=== PATIENT | female | born 1940 | race Caucasian/White ===

== ENCOUNTER → 2016-10-12 | Outpatient (CLI) | payer OTHER ==
--- NOTE | 2016-10-12 11:21 | MA ---
Screening Digital Mammogram With iCAD Analysis Clinical Indications: Routine screening. A sister was diagnosed with breast cancer her 60s. Technique: Standard cephalocaudal and mediolateral oblique projections were obtained. This examinatio n was processed by the iCAD computer aided detection system. Comparison: October 2015, July 2014, July 2013, July 2012, July 2011. Breast density: Type B; Scattered fibroglandular densities. Findings: CAD was reviewed. No masses, suspicious calcifications or other signs of malignancy are id entified. There has been no significant change in the appearance of either breast. Impression: Negative mammogram. BI-RADS 1. Recommendation: Routine mammographic screening in one year as long as physical examination is negativ [facility]. Negative mammography should not preclude additional workup of a clinically suspicious finding. The patient's information is entered into a reminder system with a target due date for her next mammo gram.
== END ==
LOC: BMCIMAGING 08:51
DX: Z12.31 Encounter for screening mammogram for malignant neoplasm of breast (principal)
CPT/HCPCS: G0202

== ENCOUNTER → 2017-09-20 | Outpatient (CLI) | payer OTHER | LOC: BMCIMAGING 13:13 | PROVIDERS: ATTEND Physician Assistant Medical | DX: M85.48 Solitary bone cyst, other site (principal); M54.5 Low back pain ==

== ENCOUNTER → 2017-10-14 | Outpatient (CLI) | payer OTHER | LOC: BMCIMAGING 12:33 | PROVIDERS: ATTEND Internal Medicine | DX: Z12.31 Encounter for screening mammogram for malignant neoplasm of breast (principal); Z80.3 Family history of malignant neoplasm of breast ==

== ENCOUNTER → 2017-12-10 | Outpatient (CLI) | payer OTHER | LOC: FCPNEURO 20:00 | PROVIDERS: ATTEND Student in an Organized Health Care Education/Training Program | DX: G47.33 Obstructive sleep apnea (adult) (pediatric) (principal); G47.39 Other sleep apnea ==

== ENCOUNTER 2018-02-28 10:58 | Inpatient (IN) | payer OTHER ==
--- NOTE | 2018-02-28 14:17 | CPEKG ---
Heart Rate: 67 RR Interval: 896 P-R Interval: 196 QRSD Interval: 88 QT Interval: 420 QTC Interval: 444 P [place]: 79 QRS [place]: 55 T Wave [place]: 67 EKG Severity - BORDERLINE ECG - EKG Impression: SINUS RHYTHM EKG Impression: PROBABLE LEFT ATRIAL ABNORMALITY Electronically Signed By: Alistair Singletary 01-Mar-2018 10:42:19
--- NOTE | 2018-02-28 14:38 | PDCARPN ---
Cardiology Progress Note Chief Complaint: PAF Assessment/Plan: Assessment: 77-y/o F PMH PAF, bladder CA, IBS, here for Sotalol titration after presenting to [facility] in [place]. Other PMH includes OA for which she has been scheduled for THR on Saturday. Currently cancelled but we are trying to see if she can get rescheduled. #. PAF: has converted to SR will start Sotalol titration hold AC in anticipation for possible surgical intervention #. FEN: regular diet monitor electrolytes #. LOS: inpatient for high risk med titration Plan: - Start Sotalol once labwork complete 02/28/18 14:33 Subjective: No AF currently. Objective: Vital Signs (8 Hrs) Temp Pulse Resp BP Pulse Ox 02/28/18 13:18 98.0 F 77 15 99/69 L 94 Intake/Output (24 Hrs) 02/27/18 02/28/18 03/01/18 05:59 05:59 05:59 Intake Total 500 Balance 500 Intake: Oral (ml) 500 Other: Weight 54.3 kg EKG: NSR Telemetry: SR - Physical Exam Constitutional: healthy appearing, no apparent distress Eyes: PERRL Ears, Nose, Mouth, Throat: moist mucous membranes Cardiovascular: regular rate and rhythm, no murmurs Respiratory: clear to auscultate bilat, no crackles Gastrointestinal: normoactive bowel sounds Skin: no rashes, no abrasions Neurologic: AAOx3 Psychiatric: cooperative, interactive ICD10 Worksheet Patient Problems: Problems Problem Status Onset Afib Acute - ICD10 Problem Qualifiers (1) Afib
--- NOTE | 2018-02-28 15:20 | PDMN ---
Medical Necessity Medical necessity: est los>2mn for PAF; admit for Sotalol loading and titration with f/u EKG's, for high risk medication; comorbid IBS, OA ( possible THR 03/03), AC on hold for potential surgery; hx bladder CA; per order and H&P 02/28/18
[2018-02-28] MEDS ORDERED: ACETAMINOPHEN 325 MG TAB PO PRN (15:44)
[2018-02-28] MEDS ORDERED: BISMUTH SUBSALICYLATE 524 MG/30 ML UDL PO PRN (15:44)
[2018-02-28] MEDS ORDERED: POLYETHYLENE GLYCOL 3350 17 GM PKT PO PRN (15:44)
[2018-02-28] MEDS ORDERED: BUTENAFINE HCL TP PRN (15:44)
[2018-02-28] MEDS ORDERED: FLUTICASONE NASAL 120 SPRAYS/16 GM MDI NS PRN (15:44)
[2018-02-28] MEDS ORDERED: TEMAZEPAM 15 MG CAP PO PRN (16:05)
[2018-02-28 16:50] LABS: PLATELET COUNT 236 10^3/uL (150-400)
[2018-02-28 17:11] LABS: INR 1.18 (0.83-1.16); PROTIME(PATIENT) 15.2 SEC (12.0-15.0)
[2018-02-28] MEDS: APIXABAN 5 MG TAB PO SCH (20:54)
[2018-02-28] MEDS: SOTALOL HCL 80 MG TAB PO SCH (20:55)
[2018-02-28] MEDS: GABAPENTIN 100 MG CAP PO SCH (20:55)
[2018-02-28] MEDS: CARBOXYMETHYLCELLULOSE 1% 0.4 ML DROPERETTE EACHEYE SCH (20:55)
--- NOTE | 2018-02-28 23:20 | CPEKG ---
Heart Rate: 58 RR Interval: 1034 P-R Interval: 196 QRSD Interval: 96 QT Interval: 476 QTC Interval: 468 P [place]: 85 QRS [place]: 69 T Wave [place]: 71 EKG Severity - BORDERLINE ECG - EKG Impression: SINUS RHYTHM Electronically Signed By: Alistair Singletary 01-Mar-2018 10:42:15
[2018-03-01 04:40] LABS: INR 1.27 (0.83-1.16); PROTIME(PATIENT) 16.1 SEC (12.0-15.0)
[2018-03-01] MEDS: LEVOTHYROXINE 88 MCG TAB PO SCH (06:21)
[2018-03-01] MEDS: LIOTHYRONINE SODIUM 5 MCG TAB PO SCH (09:00)
[2018-03-01] MEDS ORDERED: METOPROLOL SUCCINATE XR 25 MG TAB PO SCH (09:00)
[2018-03-01] MEDS: SOTALOL HCL 80 MG TAB PO SCH ×2 (09:01→21:01)
[2018-03-01] MEDS: CARBOXYMETHYLCELLULOSE 1% 0.4 ML DROPERETTE EACHEYE SCH ×2 (09:02→21:02)
[2018-03-01] MEDS: VITAMIN B COMPLEX 1 EA CAP/TAB PO SCH (09:02)
[2018-03-01] MEDS: APIXABAN 5 MG TAB PO SCH ×2 (09:02→21:02)
[2018-03-01] MEDS: MINOXIDIL TP SCH (09:04)
--- NOTE | 2018-03-01 09:38 | PDCARPN ---
Cardiology Progress Note Chief Complaint: PAF/Sotalol titration Assessment/Plan: Assessment: 77-y/o F PMH PAF, bladder CA, IBS, here for Sotalol titration after presenting to [facility] in [place]. Other PMH includes OA for which she has been scheduled for THR on Saturday. Her surgery is cancelled but can be scheduled in near future. #. PAF: has spontaneously converted to SR prior to initiation of Sotalol will start Sotalol titration for rhythm maintenance resume AC #. FEN: regular diet monitor electrolytes #. LOS: inpatient for high risk med titration Plan: - Continue Sotalol with post dosing ECG protocol 03/01/18 09:35 Subjective: No complaints. Objective: Vital Signs (8 Hrs) Temp Pulse Resp BP Pulse Ox 03/01/18 09:01 69 124/73 H 03/01/18 07:39 97.9 F 60 15 116/69 97 03/01/18 04:25 98.0 F 62 17 122/69 H 97 Intake/Output (24 Hrs) 02/28/18 03/01/18 03/02/18 05:59 05:59 05:59 Intake Total 1450 Output Total 1400 Balance 50 Intake: Oral (ml) 1450 Output: Urine (ml) 1400 Urostomy 1400 Other: Weight 54.3 kg Number of Voids Toilet 2 Result Diagrams: 02/28/18 16:37 03/01/18 03:24 EKG: SR with QTc wnl Telemetry: SR - Physical Exam Constitutional: healthy appearing, no apparent distress Eyes: PERRL, anicteric sclera Ears, Nose, Mouth, Throat: moist mucous membranes Cardiovascular: regular rate and rhythm, no murmurs Respiratory: clear to auscultate bilat, no crackles Neurologic: AAOx3 Psychiatric: cooperative, interactive ICD10 Worksheet Patient Problems: Problems Problem Status Onset Afib Acute - ICD10 Problem Qualifiers (1) Afib
--- NOTE | 2018-03-01 11:06 | CPEKG ---
Heart Rate: 62 RR Interval: 968 P-R Interval: 196 QRSD Interval: 92 QT Interval: 452 QTC Interval: 459 P [place]: 84 QRS [place]: 63 T Wave [place]: 68 EKG Severity - BORDERLINE ECG - EKG Impression: SINUS RHYTHM EKG Impression: BORDERLINE T ABNORMALITIES, ANT-LAT LEADS Electronically Signed By: Alistair Singletary 01-Mar-2018 14:26:51
--- NOTE | 2018-03-01 14:53 | ASMTCMCOM ---
CM Note CM Note Notes: Pt admitted in [place]. DC need are unclear. CM to follow. Date Signed: 03/01/2018 02:52 PM Electronically Signed By:Shirley Brock LCSW
[2018-03-01] MEDS: GABAPENTIN 100 MG CAP PO SCH (21:02)
--- NOTE | 2018-03-01 23:03 | CPEKG ---
Heart Rate: 58 RR Interval: 1034 P-R Interval: 200 QRSD Interval: 104 QT Interval: 484 QTC Interval: 476 P [place]: 82 QRS [place]: 61 T Wave [place]: 65 EKG Severity - NORMAL ECG - EKG Impression: SINUS RHYTHM Electronically Signed By: Janki Cardoza 02-Mar-2018 07:09:11
[2018-03-02] MEDS: LEVOTHYROXINE 88 MCG TAB PO SCH (07:06)
[2018-03-02] MEDS: LIOTHYRONINE SODIUM 5 MCG TAB PO SCH (07:10)
[2018-03-02] MEDS: CARBOXYMETHYLCELLULOSE 1% 0.4 ML DROPERETTE EACHEYE SCH ×2 (08:21→21:11)
[2018-03-02] MEDS: APIXABAN 5 MG TAB PO SCH ×2 (08:21→20:54)
[2018-03-02] MEDS: VITAMIN B COMPLEX 1 EA CAP/TAB PO SCH (08:21)
[2018-03-02] MEDS: SOTALOL HCL 80 MG TAB PO SCH ×2 (10:31→20:56)
--- NOTE | 2018-03-02 11:24 | PDCARPN ---
Cardiology Progress Note Assessment/Plan: Assessment: 1. Paroxysmal Afib 2. Initiation of Sotalol therapy 3. QTc 472 ms on ECG this AM Plan: -Continue Sotaolol 120 mg bid -Continiue Eliquis 5 mg bid -Continue ECG 2 hours post Sotalol dose 03/02/18 11:21 Subjective: Yolanda was admitted Silvio evening for initation of Sotalol therapy in the setting of symptomatic PAF. She spontaneously converted to NSR. Tolerating Sotalol 120 mg bid. QTc on most recent ECG of 472 ms. She remains on Eliquis 5 mg bid Reviewed/Discussed With: multidisciplinary team Objective: Vital Signs (8 Hrs) Temp Pulse Resp BP Pulse Ox 03/02/18 11:18 65 12 135/76 H 95 03/02/18 07:39 36.6 C 55 L 12 112/69 98 03/02/18 04:08 36.7 C 61 15 110/56 L 96 Intake/Output (24 Hrs) 03/01/18 03/02/18 03/03/18 05:59 05:59 05:59 Intake Total 1450 520 Output Total 1400 550 Balance 50 -30 Intake: Oral (ml) 1450 520 Output: Urine (ml) 1400 550 Urostomy 1400 550 Other: Weight 54.3 kg Intake Quantity Yes Sufficient Number of Voids Toilet 2 Urostomy 1 Result Diagrams: 02/28/18 16:37 03/01/18 03:24 - Physical Exam Constitutional: WDWN Ears, Nose, Mouth, Throat: moist mucous membranes Cardiovascular: regular rate and rhythm, no murmurs, no rubs, no gallops Respiratory: clear to auscultate bilat Musculoskeletal: no muscular tenderness Neurologic: AAOx3, CN II-XII grossly intact Psychiatric: cooperative, interactive, following commands ICD10 Worksheet Patient Problems: Problems Problem Status Onset Afib Acute
--- NOTE | 2018-03-02 12:14 | CPEKG ---
Heart Rate: 56 RR Interval: 1071 P-R Interval: 192 QRSD Interval: 82 QT Interval: 464 QTC Interval: 448 P [place]: 82 QRS [place]: 47 T Wave [place]: 68 EKG Severity - BORDERLINE ECG - EKG Impression: SINUS RHYTHM EKG Impression: PROBABLE LEFT ATRIAL ABNORMALITY EKG Impression: BORDERLINE T ABNORMALITIES, ANT-LAT LEADS Electronically Signed By: Zion Dawn 03-Mar-2018 11:00:15
--- NOTE | 2018-03-02 16:27 | PDCARPN ---
Cardiology Progress Note Assessment/Plan: Assessment: 1. Paroxysmal Afib 2. Initiation of Sotalol therapy 3. QTc 464 ms at 12:30 today Plan: -Continue Sotaolol 120 mg bid -Continiue Eliquis 5 mg bid -Continue ECG 2 hours post Sotalol dose 03/02/18 11:21 03/02/18 16:26 Subjective: Pt admitted for initiation of sotalol in the setting of symptomatic Afib. ECT at 12:30 on March corrects with [place] formula to 464 ms. OK to continue sotalol 120 mg bid. Reviewed/Discussed With: multidisciplinary team Objective: Vital Signs (8 Hrs) Pulse Resp BP Pulse Ox 03/02/18 11:18 65 12 135/76 H 95 Intake/Output (24 Hrs) 03/01/18 03/02/18 03/03/18 05:59 05:59 05:59 Intake Total 1450 520 Output Total 1400 550 Balance 50 -30 Intake: Oral (ml) 1450 520 Output: Urine (ml) 1400 550 Urostomy 1400 550 Other: Weight 54.3 kg Intake Quantity Yes Sufficient Number of Voids Toilet 2 Urostomy 1 Result Diagrams: 02/28/18 16:37 03/01/18 03:24 ICD10 Worksheet Patient Problems: Problems Problem Status Onset Afib Acute
[2018-03-02] MEDS: VSL#3 1 EACH CAP PO SCH (16:40)
[2018-03-02] MEDS: MINOXIDIL TP SCH (19:38)
[2018-03-02] MEDS: GABAPENTIN 100 MG CAP PO SCH (20:54)
[2018-03-03] MEDS ORDERED: LIOTHYRONINE SODIUM 5 MCG TAB PO SCH (06:00)
[2018-03-03] MEDS: LEVOTHYROXINE 88 MCG TAB PO SCH (06:05)
[2018-03-03] MEDS ORDERED: ESTRADIOL 42.5 GM CRTUBE VG SCH (08:00)
--- NOTE | 2018-03-03 08:54 | CPEKG ---
Heart Rate: 58 RR Interval: 1034 P-R Interval: 196 QRSD Interval: 90 QT Interval: 448 QTC Interval: 441 P [place]: 81 QRS [place]: 54 T Wave [place]: 68 EKG Severity - BORDERLINE ECG - EKG Impression: SINUS RHYTHM EKG Impression: PROBABLE LEFT ATRIAL ABNORMALITY Electronically Signed By: Zion Dawn 03-Mar-2018 10:58:24
--- NOTE | 2018-03-03 09:16 | CPEKG ---
Heart Rate: 55 RR Interval: 1091 P-R Interval: 204 QRSD Interval: 88 QT Interval: 488 QTC Interval: 467 P [place]: 78 QRS [place]: 63 T Wave [place]: 69 EKG Severity - NORMAL ECG - EKG Impression: SINUS RHYTHM Electronically Signed By: Zion Dwan 03-Mar-2018 10:58:33
[2018-03-03] MEDS: SOTALOL HCL 80 MG TAB PO SCH (10:01)
[2018-03-03] MEDS: APIXABAN 5 MG TAB PO SCH (10:01)
[2018-03-03] MEDS: VITAMIN B COMPLEX 1 EA CAP/TAB PO SCH (10:01)
[2018-03-03] MEDS: MINOXIDIL TP SCH (10:02)
[2018-03-03] MEDS: VSL#3 1 EACH CAP PO SCH (10:05)
[2018-03-03] MEDS: CARBOXYMETHYLCELLULOSE 1% 0.4 ML DROPERETTE EACHEYE SCH (10:05)
[2018-03-03 11:25] VITALS: BP 112/64
--- NOTE | 2018-03-03 12:36 | GDS ---
[f rep st] DISCHARGE SUMMARY DISCHARGE DIAGNOSIS: Paroxysmal atrial fibrillation status post sotalol loading. HOSPITAL COURSE: For detailed H and P, please see prior dictation. Briefly, the patient is a 77-yea r-old female with history of bladder cancer, irritable bowel syndrome, and paroxysmal atrial fibrilla tion. She presented to [facility] complaining of symptomatic atrial fibrillation. Therefore, she was admitted to the hospital for sotalol loading. She was started on 120 mg twice b.i.d. and tolera lamont the medication well. Her QTc remained within normal limits. At the time of discharge, her QTc w as 467. She did have some fatigue the morning of discharge. She ambulated in the halls and did have some belching. Admitted to feeling better. She was monitored on telemetry and had intermittent atr ial fibrillation. Her EKG at the time of discharge showed normal sinus rhythm. PHYSICAL EXAMINATION: GENERAL: Patient appears in no acute distress. VITAL SIGNS: Blood pressure 1 12/64, heart rate 57, oxygen saturation of 97% on room air. Afebrile. LUNGS: Clear to auscultation . No wheezes, rhonchi, or crackles auscultated. CARDIAC: Regular rate and rhythm, without any murm urs, rubs, or gallops appreciated. EXTREMITIES: Palpable pulses bilaterally, without any evidence o f edema. NEUROLOGIC: Nonfocal. DISCHARGE MEDICATIONS: She will continue sotalol 120 mg twice daily. Metoprolol has been discontinu ed. The remaining of her medications are the same. She will continue Cytomel 5 mcg daily, Refresh e ye drops b.i.d., Tylenol p.r.n., minoxidil daily, Pepto-Bismol p.r.n., MiraLAX p.r.n., Flonase p.r.n. , sonata 5 mg at bedtime p.r.n., vitamin B daily, Synthroid 88 mcg daily, herbal supplement daily, Ne urontin 200 mg at bedtime, estradiol 3 days, Eliquis 5 mg twice daily. PLAN: Yolanda is currently stable and ready for discharge home. She will remain on Eliquis for CVA pro phylaxis. She will receive a call from our office to schedule a followup in 1 week. Greater than 30 minutes was spent coordinating the patient's care today. /[id number]/MODL
--- NOTE | 2018-03-03 13:30 | ASDISCHSUM ---
Discharge Information Plan Status:Home with No Needs Medically Cleared to Leave:03/03/2018 Discharge Date:03/03/2018 12:41 PM CM D/C Disposition:Home, Routine, Self-Care ADT D/C Disposition:Home, Routine, Self-Care Projected Discharge Date:03/03/2018 12:41 PM Transportation at D/C: Discharge Delay Reason: Follow-Up Date:03/03/2018 12:41 PM Discharge Slot: Final Diagnosis: Placement Information Patient Contact Information Contact Name:ANALIA Relationship:Daughter Address: City: [facility] Phone: [facility]/LoginRadius Code: Email: Financial Information Financial Class:Medicare Primary Plan Desc:MEDICARE INPATIENT Primary Plan Number:[id number] Secondary Plan Desc:[facility]OLI ROACH INDEMNITY Secondary Plan Number:[id number] Assessment Information LACE LACE Length of stay for Answers: 2 days current admission Acuity / Level of Answers: Yes Care: Did the patient have an inpatient admission? Comorbidities - select Answers: Any tumor (including all that apply lymphoma or leukemia) Other Notes: Afib # of Emergency department Answers: 0 visits in the last 6 months Score: 8 Date Signed: 03/03/2018 01:29 PM Electronically Signed By:Mini Ribeiro RN [facility] CM Progress Note CM Note CM Note Notes: Pt admitted in [place]. DC need are unclear. CM to follow. Date Signed: 03/01/2018 02:52 PM Electronically Signed By:Shirley Brock LCSW Case Management Discharge Plan Note Case Management Discharge Discharge Order Complete? Answers: Yes Patient to Obtain Answers: Independently Medications Discharge Comments Notes: 03/03/2018 Case Management Note Pt to d/c independent with follow up as directed. Date Signed: 03/03/2018 01:29 PM Electronically Signed By:Mini Ribeiro RN Intervention Information
== END 2018-03-03 12:41 | disposition home or self-care (01) | DRG 310 ==
LOC: F2W 12:56 → OBSVTOIN 13:25
PROVIDERS: ADMIT Internal Medicine Cardiovascular Disease; ATTEND Internal Medicine Cardiovascular Disease
DX: I48.0 Paroxysmal atrial fibrillation (principal); K58.9 Irritable bowel syndrome, unspecified; Z85.51 Personal history of malignant neoplasm of bladder

== ENCOUNTER → 2018-06-04 | Outpatient (CLI) | payer OTHER ==
[~2018-06-04] MED LIST: IOPAMIDOL (ISOVUE-300) 150 ML BTL ONE
== END ==
LOC: FIMAGING 12:55
PROVIDERS: ATTEND Urology
DX: R31.9 Hematuria, unspecified (principal); Z85.51 Personal history of malignant neoplasm of bladder
CPT/HCPCS: 74178; Q9967

== ENCOUNTER 2018-08-18 09:02 | Observation (INO) | payer OTHER ==
[2018-08-18] MEDS: ALTEPLASE 2 MG VIAL IVP ONE ×2 (10:27→20:08)
[2018-08-18] MEDS ORDERED: NS W/ 20 KCl/L 1,000 ML IV ONE ×2 (10:30→20:30)
[2018-08-18] MEDS ORDERED: ACETAMINOPHEN 325 MG TAB PO PRN (11:10)
[2018-08-18] MEDS ORDERED: PROMETHAZINE HCL 25 MG/ML INJ IVP PRN (11:10)
[2018-08-18] MEDS ORDERED: LORazepam 2 MG/ML INJ IVP PRN (11:10)
--- NOTE | 2018-08-18 11:15 | PDCONSULT ---
Database Marketing Manager Note: Hematology/oncology consultation note Outpatient oncologist: Dr. Dionne Gomez Reason for consultation: History of bladder cancer here for inpatient chemotherapy History of present illness: Yolanda is a 77 year old female with history of urothelial carcinoma who is admitted for dose dense MVAC. She initially was diagnosed with a superficial bladder cancer in 2013. She underwent treatment with transurethral resection and intravesicular therapy with persistent carcinoma in situ. She underwent a cystectomy 2013 and had a T2 N0 tumor. 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 She was then evaluated at [facility] by Dr. Lakhani with recommendations of receiving dose dense MVAC in a neoadjuvant manner. She received cycle 1 of 2017. She tolerated it well without any issues. She did receive Zofran as premedication and was discharged with it. She did not fill the Zofran due to her underlying atrial fibrillation her being on sotalol with concerns of QT prolongation. She did develop no mucositis or femoral neutropenia with chemotherapy. She presents today for evaluation of 2nd cycle of dose dense MVAC. Past medical and surgical history: History of urothelial carcinoma as per above status post cystectomy Atrial fibrillation Hypertension Esophageal stenosis Irritable bowel syndrome Lymphocytic colitis Iron deficiency anemia Tubal ligation Appendectomy Hysterectomy Family history: Sister had breast cancer Social history: Patient is a former smoker. She currently is not smoking. Her had colorectal cancer. Allergies: Reviewed in [facility] Outpatient medications: Reviewed [facility] Review of systems: 12 point review of systems obtained was otherwise negative Physical examination: Temp Pulse Resp BP Pulse Ox 35.7 C L 65 16 138/78 H 95 08/18/18 09:51 08/18/18 09:51 08/18/18 09:51 08/18/18 09:51 08/18/18 09:51 General: Pleasant-appearing female in no acute distress HEENT: Oropharynx is clear extra movements are intact pupils equal round reactive to light Pulmonary: Clear to auscultation bilateral Cardiovascular: No murmurs gallops or rubs Abdomen: Cystostomy noted with ileal conduit, soft nontender nondistended bowel sounds are present Lymph: No lymphadenopathy MSK: Right-sided PICC line noted no cyanosis clubbing or edema Psych: Normal affect Skin: No skin lesions Neuro: Moving all extremities equally Labs: WBC 13.7, hemoglobin 11.5, platelets 111, creatinine 0.7 Assessment plan: Yolanda is a 77-year-old female with history of left renal pelvis urothelial carcinoma who is receiving neoadjuvant chemotherapy as dictated below. 1. Left renal pelvis urothelial carcinoma: She is here for dose 2 of dose dense MVAC. She tolerated the 1st cycle well. Her counts are appropriate to proceed. Her creatinine is also appropriate to proceed. Chemotherapy orders written by Dr. Gomez have been reviewed by myself the clinical pharmacist. 2. History of atrial fibrillation: She is receiving sotalol. I did reach out to review her premedications given MD Wiley she did receive Zofran and multiple days without any significant issues. I feel that she is okay to receive 1 dose of Zofran and will use Compazine as needed alongside scheduled dexamethasone. 3. Chemotherapy-induced nausea: I did reviewed with the clinical pharmacist her premedications and will try to minimize Zofran exposure given her atrial fibrillation slight QT prolongation. Will use dexamethasone scheduled for for subsequent days. All questions were answered. She voiced understanding the plan was appreciate my care today.
--- NOTE | 2018-08-18 11:49 | GHP ---
DATE OF ADMISSION: 08/18/2018 HISTORY OF PRESENT ILLNESS: The patient is a pleasant 77-year-old female with history of urothelial carcinoma here getting neoadjuvant therapy. She presents feeling well. She had a round of chemotherapy earlier in the month at [facility] that was complicated by volume overload requiring diuretics. When I speak with her, she said she had symptomatic atrial fibrillation last evening. This is a know n diagnosis for her. She takes sotalol and on Eliquis. She has had no recent fever, chills, cough, sputum, nausea, vomiting, diarrhea. REVIEW OF SYSTEMS: Complete 10-point review of systems conducted negative, except as noted in the HP I. 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 ALLERGIES: Gatifloxacin, gluten, guaifenesin, hydrocodone, nitrofurantoin, oxycodone, paper tape, Te gaderm. SOCIAL HISTORY: She is a former smoker. Lives in [place]. Sister present at the bedside. FAMILY HISTORY: Sister is healthy. PHYSICAL EXAM: VITAL SIGNS: Temp 35.7, blood pressure 138/70, pulse 65, breathing 16 times a minute , 95% on room air. GENERAL: In no acute distress. HEENT: Sclerae anicteric. Oropharynx clear. M ucous membranes moist. NECK: Supple. No lymphadenopathy or JVD. LUNGS: Clear to auscultation chelsey aterally. HEART: S1, S2. ABDOMEN: Soft, nontender, nondistended. LOWER EXTREMITIES: No edema. Calves nontender. SKIN: Without rash. NEUROLOGIC: Exam is nonfocal. LABORATORY/IMAGING: There are no laboratory studies. I have discussed the case with Dr. Remy Barrientos,as well as Dr. Dionne Gomez. EKG reviewed interpreted by me shows sinus at 59 with normal axis and intervals. There is slightly p rolonged QT at 462 msec. ASSESSMENT/PLAN: A 77-year-old female with atrial fibrillation and transitional cell here for electi ve admission for chemotherapy. 1. Chemotherapy. Management per Oncology. 2. Nausea. The patient has apprehension about QT prolonging agents, such as Reglan and Zofran. I h ave held off on them for now. I have written her for some p.r.n. Ativan and Phenergan. She will rec eive some Zofran as part of her standing chemotherapy orders, which seems reasonable to me. She has received this in the past without ventricular arrhythmias. 3. Prolonged QTc. See above. We will check an EKG in the morning. 4. Atrial fibrillation. This is paroxysmal and will follow. Continue her sotalol and Eliquis. 5. Hypothyroidism. Continue her medicines. 6. Prophylaxis. She is therapeutically anticoagulated. DISPOSITION: Observation status. /[id number]/MODL
[2018-08-18] MEDS ORDERED: NS IV ONE ×2 (18:00→18:30)
[2018-08-18] MEDS ORDERED: ONDANSETRON HCL PF 8 MG, DEXAMETHASONE 10 MG in NS 50 ML IV ONE (18:00)
[2018-08-18] MEDS ORDERED: APREPITANT IV ONE (18:00)
[2018-08-18] MEDS ORDERED: CISPLATIN IV ONE (18:30)
[2018-08-18] MEDS ORDERED: METHOTREXATE SODIUM IV ONE (19:30)
[2018-08-18] MEDS ORDERED: FUROSEMIDE 20 MG/2 ML VIAL IVP ONE (19:30)
[2018-08-18] MEDS ORDERED: VINBLASTINE IV ONE (19:45)
[2018-08-18] MEDS ORDERED: DOXORUBICIN IV ONE (20:00)
[2018-08-18] MEDS ORDERED: GABAPENTIN 100 MG CAP PO SCH (21:00)
[2018-08-18] MEDS ORDERED: OLANZapine 2.5 MG TAB PO SCH (21:00)
[2018-08-18] MEDS ORDERED: BUTENAFINE HCL TP PRN (21:16)
[2018-08-18] MEDS: SOTALOL HCL 80 MG TAB PO SCH (21:58)
[2018-08-18] MEDS: APIXABAN 5 MG TAB PO SCH (21:59)
[2018-08-19] MEDS ORDERED: LEVOTHYROXINE 88 MCG TAB PO SCH (06:00)
[2018-08-19] MEDS ORDERED: LIOTHYRONINE SODIUM 5 MCG TAB PO SCH (06:00)
--- NOTE | 2018-08-19 06:11 | CPEKG ---
Test Reason : OPEN Blood Pressure : / mmHG Vent. Rate : 059 BPM Atrial Rate : 060 BPM P-R Int : 179 ms QRS Dur : 084 ms QT Int : 462 ms P-R-T Axes : 073 031 059 degrees QTc Int : 458 ms Sinus rhythm Confirmed by Roc Florence ([id number]) on 08/19/2018 6:11:39 AM Referred By: Confirmed By:Roc Florence
[2018-08-19] MEDS: APIXABAN 5 MG TAB PO SCH (08:02)
[2018-08-19] MEDS: SOTALOL HCL 80 MG TAB PO SCH (08:02)
[2018-08-19 08:59] VITALS: BP 135/76
[2018-08-19] MEDS ORDERED: DEXAMETHASONE 4 MG TAB PO SCH (09:00)
[2018-08-19] MEDS ORDERED: CARBOXYMETHYLCELLULOSE 1% 0.4 ML DROPERETTE EACHEYE SCH (09:00)
[2018-08-19] MEDS ORDERED: PROCHLORPERAZINE MALEATE 10 MG TAB PO PRN (09:00)
--- NOTE | 2018-08-19 10:06 | HOSPPROG ---
Hospitalist Progress Note Assessment/Plan: 77 yo F here for elective chemo home today see dc summary Subjective: very ready for dc. Qt 453- shorter than yesterday Objective: Vital Signs Temp Pulse Resp BP Pulse Ox 36.7 C 70 16 135/76 H 94 08/19/18 04:00 08/19/18 08:58 08/19/18 08:58 08/19/18 08:58 08/19/18 08:58 Laboratory Results 08/19/18 05:55 08/18/18 08/19/18 08/20/18 05:59 05:59 05:59 Intake Total 3302 Output Total 2550 300 Balance 752 -300 - Physical Exam Constitutional: no apparent distress, appears nourished Eyes: PERRL, anicteric sclera Ears, Nose, Mouth, Throat: moist mucous membranes, hearing normal Cardiovascular: regular rate and rhythym, no murmur, rub, or gallop Respiratory: no respiratory distress, no rales or rhonchi Gastrointestinal: normoactive bowel sounds, soft, non-tender abdomen Genitourinary: no bladder fullness, No nowak in urethra Skin: warm, normal color Musculoskeletal: full muscle strength, no joint effusions Neurologic: AAOx3, sensation intact bilaterally ICD10 Worksheet Patient Problems: Problems Problem Status Onset Afib Acute
--- NOTE | 2018-08-19 10:15 | ASMTLACE ---
[facility] Length of stay for Answers: 1 day current admission Comorbidities - select Answers: Other Notes: AFib; Hypothyroid all that apply # of Emergency department Answers: 0 visits in the last 6 months Score: 2 Date Signed: 08/19/2018 10:14 AM Electronically Signed By:Sharron Baldwin RN
--- NOTE | 2018-08-19 10:18 | ASMTDCNOTE ---
Case Management Discharge Discharge Order Complete? Answers: Yes Patient to Obtain Answers: Independently Medications Transportation Arranged Answers: Family/Friends Family Notified Answers: Yes Discharge Comments Notes: Patient here for observation during administration of chemotherapy. She is medically cleared for discharge no current needs identified. CM available should needs arise. Date Signed: 08/19/2018 10:17 AM Electronically Signed By:Sharron Baldwin RN
--- NOTE | 2018-08-19 12:11 | GDS ---
DISCHARGE DIAGNOSES: 1. Transitional cell cancer, admitted for neoadjuvant therapy. 2. Atrial fibrillation on sotalol anticoagulation. 3. Hypothyroidism. HOSPITAL COURSE: Please see admission history and physical by Dr. Daron Rivera. The patient prese nted for elective chemotherapy. She felt well. Given her sotalol therapy she has a borderline prolo nged QT. It was 462 on presentation, 453 this morning. She feels well, is not nauseated, and is anx ious for discharge, which is being done today. She was given 2 additional days of dexamethasone per protocol. /[id number]/MODL
--- NOTE | 2018-08-20 13:56 | CPEKG ---
Test Reason : OPEN Blood Pressure : / mmHG Vent. Rate : 067 BPM Atrial Rate : 067 BPM P-R Int : 182 ms QRS Dur : 090 ms QT Int : 453 ms P-R-T Axes : 075 039 060 degrees QTc Int : 479 ms Sinus rhythm Confirmed by Roc Florence ([id number]) on 08/20/2018 1:55:51 PM Referred By: Confirmed By:Roc Florence
== END 2018-08-19 11:14 | disposition home or self-care (01) ==
LOC: F1NOP 09:02 → F1N 10:09
PROVIDERS: ADMIT Internal Medicine; ATTEND Internal Medicine
DX: Z51.11 Encounter for antineoplastic chemotherapy (principal); C67.9 Malignant neoplasm of bladder, unspecified; I48.91 Unspecified atrial fibrillation; I10 Essential (primary) hypertension; D64.9 Anemia, unspecified
CPT/HCPCS: 93005; C9463; G0378; J1100; J1200; J1940; J2405; J2997; J9000; J9060; J9260; J9360

== ENCOUNTER 2018-08-22 22:50 | Emergency (ER) | payer OTHER ==
[2018-08-22] MEDS ORDERED: NS 1,000 ML IV ONE (23:26)
--- NOTE | 2018-08-22 23:29 | EDPHY ---
H & P Stated Complaint: FEVER THIS EVENING OF 99 AND 100.9, LAST CHEMO SATURDAY Time Seen by Provider: 08/22/18 23:10 HPI/ROS: HPI The patient presents with fever as high as 100.9 F tonight. The patient has had chills which began this afternoon and has been measuring her temperature. This is associated with a lack of appetite. 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 Since then she has been dealing with nausea and fatigue. She has limited her contact with other people. She reports that the odor of her urine has change, however it is more clear than usual. She has not had any cough, rhinorrhea, sore throat, headache , neck stiffness, vomiting, diarrhea. She received a flu vaccine in June of this year. REVIEW OF SYSTEMS 10 systems were reviewed and negative with the exception of the elements mentioned in the history of present illness. PMHx: Transitional cell cancer, atrial fibrillation managed on sotalol, hypothyroidism, urostomy tube in place with history of ileal loop conduit for bladder cancer Soc Hx: Lives independently PHYSICAL General Appearance: Alert, no distress Eyes: Pupils equal and round no pallor or injection ENT, Mouth: Mucous membranes moist, posterior pharynx is unremarkable Respiratory: There are no retractions, lungs are clear to auscultation Cardiovascular: Regular rate and rhythm Gastrointestinal: Abdomen is soft and non-tender, no masses, bowel sounds normal Neurological: A&O, moves all extremities Skin: Warm and dry, no rashes Musculoskeletal: Neck is supple non tender , no lymphadenopathy Extremities: symmetrical, full range of motion, PICC line in place in right upper extremity with no surrounding erythema, warmth, edema Psychiatric: Patient is oriented X 3, there is no agitation Source: Patient, Old records Exam Limitations: No limitations - Personal History Current Tetanus/Diphtheria Vaccine: Yes - Medical/Surgical History Hx Asthma: No Hx Chronic Respiratory Disease: No Hx Diabetes: No Hx Cardiac Disease: No Hx Renal Disease: No Hx Cirrhosis: No Hx Alcoholism: No Hx HIV/AIDS: No Hx Splenectomy or Spleen Trauma: No Other PMH: Tinnitus, hypertension, hearing loss, scolosis, arthritis, esophageal stenosis, IBS/CBO, Bladder Cancer- METS KIDNEY, lymphocytic colitis, ROLANDA, anemia, afib, tubal, hysterectomy, appendectomy, cystectomy, cataracts, tonsillectomy, complete right hip replacement - Social History Smoking Status: Former smoker Constitutional: Initial Vital Signs Temperature (C) 37.0 C 08/22/18 22:59 Heart Rate 83 08/22/18 22:59 Respiratory Rate 18 08/22/18 22:59 Blood Pressure 158/85 H 08/22/18 22:59 O2 Sat (%) 95 08/22/18 22:59 O2 Delivery Mode Room Air Allergies/Adverse Reactions: gatifloxacin [From Tequin] Allergy (Verified 08/22/18 22:57) hallucinations gluten Allergy (Verified 08/22/18 22:57) guaifenesin Allergy (Verified 08/22/18 22:57) rash/headache hydrocodone Allergy (Verified 08/22/18 22:57) Vomiting nitrofurantoin Allergy (Verified 08/22/18 22:57) chills/fever oxycodone Allergy (Verified 08/22/18 22:57) Vomiting quinidine [From Quinidex Extentabs] Allergy (Verified 08/22/18 22:57) drug induced hepatitis Home Medications: Medication Instructions Recorded Apixaban [Eliquis] 5 mg PO BID 02/28/18 Butenafine HCl 1 bernie TP DAILY PRN 02/28/18 Carboxymethylcellulose 1% [Refresh 1 drop EACHEYE BID 02/28/18 Celluvisc (*)] Estradiol [Estrace Vaginal (*)] 1 bernie VG Q3D 02/28/18 Gabapentin [Neurontin 100 MG (*)] 100 - 200 mg PO HS 02/28/18 Levothyroxine [Synthroid 88 mcg 88 mcg PO DAILY06 02/28/18 (*)] Liothyronine Sodium [Cytomel 5 mcg 5 mcg PO DAILY06 02/28/18 (*)] Sotalol HCl [Betapace 80 MG (*)] 120 mg PO BID #90 tab 03/03/18 OLANZapine [ZyPREXA 2.5 mg (*)] 1.25 mg PO HS 08/18/18 Prochlorperazine Maleate 10 mg PO TID PRN 08/18/18 [Compazine 10mg (*)] Medical Decision Making Differential Diagnosis: 77-year-old female status post chemotherapy on August 18 with history of transitional cell cancer presents with fever tonight measured at home to 100.9 associated with chills and lack of appetite. On review of systems, she has no other signs of infection. Here, the patient has normal vital signs and does not appear septic. There is no clear localizing source of her infection. Plan for labs including blood cultures. 1:09a- labs were checked and the patient has a leukocytosis of 30,000 with no indication of neutropenia. Influenza testing, UA, chest x-ray all unremarkable showing no clear source of her infection. The patient feels somewhat better after receiving IV fluids. She does have a hypokalemia, though will treat her with supplemental potassium. I spoke with Dr. Green from Oncology, we discussed the patient's case and lab testing results. We plan to discharge her home. I have discussed this with the patient, she is happy with this plan. Blood cultures are pending at this time and she has not received antibiotics here. She may have a viral sort of an illness. Her fever has improved while in the emergency department. - Data Points Laboratory Results: Laboratory Results 08/22/18 23:40 08/22/18 23:40 08/23/18 08/23/18 08/22/18 00:10 00:10 23:40 WBC RBC Hgb Hct MCV MCH MCHC RDW Plt Count MPV Neut % (Auto) Lymph % (Auto) [place] % (Auto) Eos % (Auto) Baso % (Auto) Nucleat RBC Rel Count Absolute Neuts (auto) Absolute Lymphs (auto) Absolute Monos (auto) Absolute Eos (auto) Absolute Basos (auto) Absolute Nucleated RBC Immature Gran % Seg Neutrophils % Band Neutrophils % Lymphocytes % Monocytes % Eosinophils % Basophils % Metamyelocytes % Myelocytes % Promyelocytes % Blast Cells % Immature Gran # Absolute Seg Neuts Absolute Band Neuts Absolute Lymphocytes Absolute Monocytes Absolute Eosinophils Absolute Basophils Absolute Metamyelocyte Absolute Myelocytes Absolute Promyelocytes Absolute Plasma Cells Nucleated RBCs Absolute Blast Cells Plasma Cells % Toxic Granulation Toxic Vacuolation Dohle Bodies Platelet Estimate Keratocytes Schistocytes VBG Lactic Acid Sodium 132 mEq/L L mEq/L (135-145) Potassium 3.0 mEq/L L mEq/L (3.5-5.2) Chloride 103 mEq/L mEq/L (97-110) Carbon Dioxide 21 mEq/l L mEq/l (22-31) Anion Gap 8 mEq/L mEq/L (6-14) BUN 26 mg/dL H mg/dL (7-23) Creatinine 0.7 mg/dL mg/dL (0.6-1.0) Estimated GFR > 60 Glucose 117 mg/dL H mg/dL (70-100) Calcium 8.9 mg/dL mg/dL (8.5-10.4) Urine Color YELLOW Urine Appearance HAZY Urine pH 7.0 (5.0-7.5) Ur Specific [place] 1.009 (1.002-1.030) Urine Protein NEGATIVE (NEGATIVE) Urine Ketones NEGATIVE (NEGATIVE) Urine Blood 2+ H (NEGATIVE) Urine Nitrate POSITIVE H (NEGATIVE) Urine Bilirubin NEGATIVE (NEGATIVE) Urine Urobilinogen NEGATIVE EU EU (0.2-1.0) Ur Leukocyte Esterase 1+ H (NEGATIVE) Urine RBC 1-3 /hpf /hpf (0-3) Urine WBC 10-15 /hpf H /hpf (0-3) Ur Epithelial Cells NONE SEEN /lpf /lpf (NONE-1+) Urine Bacteria TRACE /hpf H /hpf (NONE SEEN) Urine Glucose NEGATIVE (NEGATIVE) Nasal Influenza A PCR NEGATIVE FOR FLU A (NEGATIVE) Nasal Influenza B PCR NEGATIVE FOR FLU B (NEGATIVE) 08/22/18 08/22/18 23:40 23:40 WBC 30.51 10^3/uL H 10^3/uL (3.80-9.50) RBC 3.95 10^6/uL L 10^6/uL (4.18-5.33) Hgb 11.3 g/dL L g/dL (12.6-16.3) Hct 33.9 % L % (38.0-47.0) MCV 85.8 fL fL (81.5-99.8) MCH 28.6 pg pg (27.9-34.1) MCHC 33.3 g/dL g/dL (32.4-36.7) RDW 14.8 % % (11.5-15.2) Plt Count 190 10^3/uL 10^3/uL (150-400) MPV 10.8 fL fL (8.7-11.7) Neut % (Auto) Not Reported Lymph % (Auto) Not Reported [place] % (Auto) Not Reported Eos % (Auto) Not Reported Baso % (Auto) Not Reported Nucleat RBC Rel Count Not Reported Absolute Neuts (auto) Not Reported Absolute Lymphs (auto) Not Reported Absolute Monos (auto) Not Reported Absolute Eos (auto) Not Reported Absolute Basos (auto) Not Reported Absolute Nucleated RBC Not Reported Immature Gran % Not Reported Seg Neutrophils % 94.1 % % Band Neutrophils % 0.0 % % Lymphocytes % 3.9 % % Monocytes % 0.0 % % Eosinophils % 1.0 % % Basophils % 0.0 % % Metamyelocytes % 1.0 % % Myelocytes % 0.0 % % Promyelocytes % 0.0 % % Blast Cells % 0.0 % % Immature Gran # Not Reported Absolute Seg Neuts 28.71 10^3/uL H 10^3/uL (1.70-6.50) Absolute Band Neuts 0.00 10^3/uL 10^3/uL (0.00-0.70) Absolute Lymphocytes 1.19 10^3/uL 10^3/uL (1.00-3.00) Absolute Monocytes 0.00 10^3/uL L 10^3/uL (0.30-0.80) Absolute Eosinophils 0.31 10^3/uL 10^3/uL (0.03-0.40) Absolute Basophils 0.00 10^3/uL L 10^3/uL (0.02-0.10) Absolute Metamyelocyte 0.31 10^3/mL H 10^3/mL (0.00-0.00) Absolute Myelocytes 0.00 10^3/mL 10^3/mL (0.00-0.00) Absolute Promyelocytes 0.00 10^3/uL 10^3/uL (0.00-0.00) Absolute Plasma Cells 0.00 10^3/uL 10^3/uL (0.00-0.00) Nucleated RBCs 0 /100 WBC /100 WBC (0-0) Absolute Blast Cells 0.00 10^3/uL 10^3/uL (0.00-0.00) Plasma Cells % 0.0 % % Toxic Granulation PRESENT H Toxic Vacuolation PRESENT H Dohle Bodies PRESENT H Platelet Estimate ADEQUATE (ADEQ) Keratocytes 1+ H Schistocytes 1+ H VBG Lactic Acid 1.1 mmol/L mmol/L (0.7-2.1) Sodium Potassium Chloride Carbon Dioxide Anion Gap BUN Creatinine Estimated GFR Glucose Calcium Urine Color Urine Appearance Urine pH Ur Specific [place] Urine Protein Urine Ketones Urine Blood Urine Nitrate Urine Bilirubin Urine Urobilinogen Ur Leukocyte Esterase Urine RBC Urine WBC Ur Epithelial Cells Urine Bacteria Urine Glucose Nasal Influenza A PCR Nasal Influenza B PCR Medications Given: Discontinued Medications Acetaminophen (Tylenol) 650 mg PO EDNOW ONE Stop: 08/23/18 01:52 Last Admin: 08/23/18 01:56 Dose: 650 mg Sodium Chloride (Ns) 1,000 mls @ 0 mls/hr IV EDNOW ONE; Wide Open PRN Reason: Protocol Stop: 08/22/18 23:27 Last Admin: 08/22/18 23:40 Dose: 1,000 mls Potassium Chloride (Potassium Chloride Oral Liquid) 20 meq PO EDNOW ONE Stop: 08/23/18 01:24 Last Admin: 08/23/18 01:56 Dose: 20 meq Departure - Departure Disposition: Home, Routine, Self-Care Clinical Impression: Transitional cell carcinoma, Hypokalemia Fever Qualifiers: Fever type: unspecified Qualified Code(s): R50.9 - Fever, unspecified Condition: Good Instructions: Fever in Adults (ED), Hypokalemia (ED) Additional Instructions: We will call you on the phone if your blood cultures returned and are positive for growth of bacteria. If this is the case, you will need to return to the hospital. Your potassium was low today so make sure to eat foods rich in potassium such is potatoes and bananas. Return to the ER if your worse in any way. Referrals: Kallie Cooper MD [Primary Care Provider] - As per Instructions Jg Gomez MD [Medical Doctor] - As per Instructions
[2018-08-22 23:56] LABS: PLATELET COUNT 190 10^3/uL (150-400)
[2018-08-23 01:16] VITALS: BP 151/71
[2018-08-23] MEDS ORDERED: POTASSIUM CL 20 MEQ/15 ML UDCUP PO ONE (01:23)
[2018-08-23] MEDS ORDERED: ACETAMINOPHEN 325 MG TAB ONE (01:50)
[2018-08-23] MEDS ORDERED: ACETAMINOPHEN 325 MG TAB PO ONE (01:51)
== END 2018-08-23 02:02 | disposition home or self-care (01) ==
DX: C67.9 Malignant neoplasm of bladder, unspecified (principal); E87.6 Hypokalemia; I10 Essential (primary) hypertension

== ENCOUNTER 2018-08-25 10:33 | Inpatient (IN) | payer OTHER ==
[2018-08-25] MEDS ORDERED: NS 1,000 ML IV ONE ×2 (11:00→12:01)
--- NOTE | 2018-08-25 11:02 | EDPHY ---
H & P Stated Complaint: Seen 3D [facility], weak, UTI s/s, fever, last chemo 1wk [facility]. Time Seen by Provider: 08/25/18 10:57 HPI/ROS: CHIEF COMPLAINT: Fatigue, ongoing fever and weakness HISTORY OF PRESENT ILLNESS: The patient presents to the ED with fatigue, ongoing fever and weakness. The patient was seen in the emergency department 3 days ago. Patient had blood cultures obtained which were negative. The patient 's urine culture did grow out of [place]err[place] today. The patient denies cough or congestion. She denies abdominal pain or diarrhea. The patient does have a PICC line and is receiving intermittent chemotherapy for treatment of a uroepithelial cancer. REVIEW OF SYSTEMS: A comprehensive 10 point review of systems is otherwise negative aside from elements mentioned in the history of present illness. Source: Patient - Personal History Current Tetanus/Diphtheria Vaccine: Yes - Medical/Surgical History Hx Asthma: No Hx Chronic Respiratory Disease: No Hx Diabetes: No Hx Cardiac Disease: No Hx Renal Disease: No Hx Cirrhosis: No Hx Alcoholism: No Hx HIV/AIDS: No Hx Splenectomy or Spleen Trauma: No Other PMH: Tinnitus, hypertension, hearing loss, scolosis, arthritis, esophageal stenosis, IBS/CBO, Bladder Cancer- METS KIDNEY, lymphocytic colitis, ROLANDA, anemia, afib, tubal, hysterectomy, appendectomy, cystectomy, cataracts, tonsillectomy, complete right hip replacement - Social History Smoking Status: Former smoker - Physical Exam Exam: General Appearance: Alert, no acute distress Eyes: Pupils equal and round no pallor or injection ENT, Mouth: Dry mucous membranes Respiratory: There are no retractions, lungs are clear to auscultation Cardiovascular: Regular rate and rhythm Gastrointestinal: Abdomen is soft and nontender, no masses, bowel sounds normal Neurological: A&O, normal motor function, normal sensory exam, normal cranial nerves Skin: Warm and dry, no rashes Musculoskeletal: Neck is supple nontender Extremities: symmetrical, full range of motion Constitutional: Initial Vital Signs Temperature (C) 36.7 C 08/25/18 10:48 Heart Rate 77 08/25/18 10:48 Respiratory Rate 18 08/25/18 10:48 Blood Pressure 118/78 08/25/18 10:48 O2 Sat (%) 98 08/25/18 10:48 O2 Delivery Mode Room Air Allergies/Adverse Reactions: gatifloxacin [From Tequin] Allergy (Verified 08/22/18 22:57) hallucinations gluten Allergy (Verified 08/22/18 22:57) guaifenesin Allergy (Verified 08/22/18 22:57) rash/headache hydrocodone Allergy (Verified 08/22/18 22:57) Vomiting nitrofurantoin Allergy (Verified 08/22/18 22:57) chills/fever oxycodone Allergy (Verified 08/22/18 22:57) Vomiting quinidine [From Quinidex Extentabs] Allergy (Verified 08/22/18 22:57) drug induced hepatitis Home Medications: Medication Instructions Recorded Apixaban [Eliquis] 5 mg PO BID 02/28/18 Butenafine HCl 1 bernie TP DAILY PRN 02/28/18 Carboxymethylcellulose 1% [Refresh 1 drop EACHEYE BID 02/28/18 Celluvisc (*)] Estradiol [Estrace Vaginal (*)] 1 bernie VG Q3D 02/28/18 Gabapentin [Neurontin 100 MG (*)] 100 - 200 mg PO HS 02/28/18 Levothyroxine [Synthroid 88 mcg 88 mcg PO DAILY06 02/28/18 (*)] Liothyronine Sodium [Cytomel 5 mcg 5 mcg PO DAILY06 02/28/18 (*)] Sotalol HCl [Betapace 80 MG (*)] 120 mg PO BID #90 tab 03/03/18 OLANZapine [ZyPREXA 2.5 mg (*)] 1.25 mg PO HS 08/18/18 Prochlorperazine Maleate 10 mg PO TID PRN 08/18/18 [Compazine 10mg (*)] Medical Decision Making ED Course/Re-evaluation: I reviewed the patient's laboratory testing from her prior ED visit. The patient does have a positive urine culture which was noted today. She has a Serratia species which is sensitive to Levaquin and ceftriaxone. The patient was noted to have an elevated venous lactate of 3.0. The patient presents to the emergency department with symptoms related to an underlying urinary tract infection and mild pyelonephritis. Patient had repeat blood cultures x2 obtained. She received a 30 ml/kg nomal saline bolus. The patient did have leukocytosis noted several days ago in the emergency department today. Today her white blood cell count is .96 The patient was started on broad-spectrum antibiotics and did receive appropriate fluid rehydration. Patient was re-evaluated at 1:00 p.m.. She would like to be admitted to the hospital in the setting of her weakness. Repeat venous lactate is now normal at 1.0. Repeat CBC continues to be pending. Consultation is made with the hospitalist service. Differential Diagnosis: Differential diagnosis considered includes sepsis, severe sepsis, dehydration, urinary tract infection, metabolic abnormality - Data Points Laboratory Results: Laboratory Results 08/25/18 11:50 08/25/18 11:50 08/25/18 08/25/18 08/25/18 12:50 11:50 11:50 WBC 0.92 10^3/uL L* 10^3/uL (3.80-9.50) RBC 3.88 10^6/uL L 10^6/uL (4.18-5.33) Hgb 11.2 g/dL L g/dL (12.6-16.3) Hct 32.8 % L % (38.0-47.0) MCV 84.5 fL fL (81.5-99.8) MCH 28.9 pg pg (27.9-34.1) MCHC 34.1 g/dL g/dL (32.4-36.7) RDW 14.5 % % (11.5-15.2) Plt Count Pending MPV Pending Neut % (Auto) Pending Lymph % (Auto) Pending [place] % (Auto) Pending Eos % (Auto) Pending Baso % (Auto) Pending Nucleat RBC Rel Count Pending Absolute Neuts (auto) Pending Absolute Lymphs (auto) Pending Absolute Monos (auto) Pending Absolute Eos (auto) Pending Absolute Basos (auto) Pending Absolute Nucleated RBC Pending Immature Gran % Pending Immature Gran # Pending Smear Review By Pending VBG Lactic Acid 0.9 mmol/L mmol/L (0.7-2.1) Sodium 131 mEq/L L mEq/L (135-145) Potassium 3.1 mEq/L L mEq/L (3.5-5.2) Chloride 101 mEq/L mEq/L (97-110) Carbon Dioxide 23 mEq/l mEq/l (22-31) Anion Gap 7 mEq/L mEq/L (6-14) BUN 24 mg/dL H mg/dL (7-23) Creatinine 0.8 mg/dL mg/dL (0.6-1.0) Estimated GFR > 60 Glucose 111 mg/dL H mg/dL (70-100) Calcium 8.6 mg/dL mg/dL (8.5-10.4) 08/25/18 11:15 WBC RBC Hgb Hct MCV MCH MCHC RDW Plt Count MPV Neut % (Auto) Lymph % (Auto) [place] % (Auto) Eos % (Auto) Baso % (Auto) Nucleat RBC Rel Count Absolute Neuts (auto) Absolute Lymphs (auto) Absolute Monos (auto) Absolute Eos (auto) Absolute Basos (auto) Absolute Nucleated RBC Immature Gran % Immature Gran # Smear Review By VBG Lactic Acid 3.0 mmol/L H mmol/L (0.7-2.1) Sodium Potassium Chloride Carbon Dioxide Anion Gap BUN Creatinine Estimated GFR Glucose Calcium Medications Given: Discontinued Medications Sodium Chloride (Ns) 1,000 mls @ 0 mls/hr IV ONCE ONE; Wide Open PRN Reason: Protocol Stop: 08/25/18 11:01 Last Admin: 08/25/18 11:23 Dose: 1,000 mls Ceftriaxone Sodium/Dextrose (Rocephin 1 Gm (Premix)) 50 mls @ 100 mls/hr IV EDNOW ONE PRN Reason: Protocol Stop: 08/25/18 11:52 Last Admin: 08/25/18 11:49 Dose: 50 mls Sodium Chloride (Ns) 1,000 mls @ 0 mls/hr IV EDNOW ONE; Wide Open PRN Reason: Protocol Stop: 08/25/18 12:02 Last Admin: 08/25/18 12:09 Dose: 1,000 mls Departure - Departure Disposition: [facility] Inpatient Acute Clinical Impression: Dehydration, Urinary tract infection, 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
[2018-08-25] MEDS ORDERED: NS 1,600 ML IV ONE (12:00)
[2018-08-25 13:15] LABS: PLATELET COUNT 144 10^3/uL (150-400)
[2018-08-25] MEDS ORDERED: ONDANSETRON DISINTEGRATING 4 MG TAB PO PRN (13:54)
[2018-08-25] MEDS ORDERED: PROTOCOL CALCIUM 1 DOSE IV PRN (13:54)
[2018-08-25] MEDS ORDERED: ONDANSETRON 4 MG/2 ML VIAL IVP PRN (13:54)
[2018-08-25] MEDS ORDERED: PROTOCOL K PHOSPHATE 1 DOSE IV PRN (13:54)
[2018-08-25] MEDS ORDERED: PROMETHAZINE HCL 25 MG/ML INJ IVP PRN (13:54)
[2018-08-25] MEDS ORDERED: PROTOCOL POTASSIUM 1 DOSE MISC PRN (13:54)
[2018-08-25] MEDS ORDERED: PROTOCOL MAGNESIUM 1 DOSE IV PRN (13:54)
[2018-08-25] MEDS ORDERED: ACETAMINOPHEN 325 MG TAB PO PRN (13:54)
[2018-08-25] MEDS ORDERED: GABAPENTIN 100 MG CAP PO PRN (14:03)
--- NOTE | 2018-08-25 14:32 | PDGENHP ---
History and Physical - Chief Complaint weakness - History of Present Illness Yolanda Lagos is a 77 year old female with pmh of transitional cell carcinoma, on chemo, last treatment on Saturday of last week, Afib, Hypothyroid who presented to the Er with complaints of weakness. she was originally seen in the ER wt complaints of fever on 08/22 was evaluated and discharged home. She continued to feel worse and became extremely weak. She had a fever to 100.9 when in the ER previously and says she has been taking tylenol every 6 hours since then to ramirez the ongoing fevers she has had. She denied any dysuria, ab pain, diarrhea, but has had some mild nausea and says that her urine has been malodorous. She has an indwelling urostomy which is draining fine and the stoma is not red erythematous or painful. She denied any cough, cp, or other symptoms. History Information - Allergies/Home Medication List Allergies/Adverse Reactions: gatifloxacin [From Tequin] Allergy (Verified 08/22/18 22:57) hallucinations gluten Allergy (Verified 08/22/18 22:57) guaifenesin Allergy (Verified 08/22/18 22:57) rash/headache hydrocodone Allergy (Verified 08/22/18 22:57) Vomiting nitrofurantoin Allergy (Verified 08/22/18 22:57) chills/fever oxycodone Allergy (Verified 08/22/18 22:57) Vomiting quinidine [From Quinidex Extentabs] Allergy (Verified 08/22/18 22:57) drug induced hepatitis Home Medications: Apixaban [Eliquis] 5 mg PO BID@07,1930 02/28/18 [Last Taken 08/25/18] Butenafine HCl 1 bernie TP DAILY PRN 02/28/18 [Last Taken 08/25/18] Carboxymethylcellulose 1% [Refresh Celluvisc (*)] 1 drop EACHEYE BID 02/28/18 [ Last Taken 08/25/18] Gabapentin [Neurontin 100 MG (*)] 100 - 200 mg PO HS PRN 02/28/18 [Last Taken 200mg] Levothyroxine [Synthroid 88 mcg (*)] 88 mcg PO DAILY06 02/28/18 [Last Taken ] Liothyronine Sodium [Cytomel 5 mcg (*)] 5 mcg PO DAILY06 02/28/18 [Last Taken ] OLANZapine [ZyPREXA 2.5 mg (*)] 1.25 mg PO HS 08/18/18 [Last Taken 08/24/18] Prochlorperazine Maleate [Compazine 10mg (*)] 10 mg PO TID PRN 08/18/18 [Last Taken Unknown] Sotalol HCl [Betapace 80 MG (*)] 120 mg PO BID@08/25/18 [Last Taken ] I have personally reviewed and updated: family history, medical history, social history, surgical history - Past Medical History atrial fibrillation (hypothyroid), cancer - Surgical History Reports: no pertinent surgical hx (hysterectomy, Ileal conduit, cystectomy. ) - Family History Positive for: CAD - Social History Smoking Status: Former smoker Alcohol Use: None Drug Use: None Review of Systems Review of Systems: ROS: 10pt was reviewed & negative except for what was stated in HPI & below Constitutional: Reports: malaise, weakness Physical Exam Physical Exam: Temp Pulse Resp BP Pulse Ox 36.7 C 76 18 128/96 H 96 08/25/18 10:48 08/25/18 14:24 08/25/18 14:24 08/25/18 14:24 08/25/18 14:24 Constitutional: no apparent distress, appears nourished, not in pain Eyes: PERRL, anicteric sclera, EOMI Ears, Nose, Mouth, Throat: moist mucous membranes, hearing normal, ears appear normal, no oral mucosal ulcers Cardiovascular: regular rate and rhythym, no murmur, rub, or gallop, No edema Respiratory: no respiratory distress, no rales or rhonchi, clear to auscultation Gastrointestinal: normoactive bowel sounds, soft, non-tender abdomen, no palpable masses Genitourinary: no bladder fullness, no bladder tenderness, other (urostomy in place, stoma appears pink with normal output) Skin: warm, normal color, no rashes or abrasions, no fluctuance, no induration, No mottled Musculoskeletal: full muscle strength, no muscle tenderness, normal joint ROM, no joint effusions Psychiatric: interacting appropriately, not anxious, not encephalopathic, thought process linear Lymph, Heme, Immunologic: no cervical LAD, no supraclavicular LAD Lab Data & Imaging Review 08/25/18 11:50 08/25/18 11:50 WBC 0.92 10^3/uL (3.80-9.50) L* 08/25/18 11:50 RBC 3.88 10^6/uL (4.18-5.33) L 08/25/18 11:50 Hgb 11.2 g/dL (12.6-16.3) L 08/25/18 11:50 Hct 32.8 % (38.0-47.0) L 08/25/18 11:50 MCV 84.5 fL (81.5-99.8) 08/25/18 11:50 MCH 28.9 pg (27.9-34.1) 08/25/18 11:50 MCHC 34.1 g/dL (32.4-36.7) 08/25/18 11:50 RDW 14.5 % (11.5-15.2) 08/25/18 11:50 Plt Count 144 10^3/uL (150-400) L 08/25/18 11:50 MPV 11.0 fL (8.7-11.7) 08/25/18 11:50 Neut % (Auto) Not Reported 08/25/18 11:50 Lymph % (Auto) Not Reported 08/25/18 11:50 Mcdonald % (Auto) Not Reported 08/25/18 11:50 Eos % (Auto) Not Reported 08/25/18 11:50 Baso % (Auto) Not Reported 08/25/18 11:50 Nucleat RBC Rel Count Not Reported 08/25/18 11:50 Absolute Neuts (auto) Not Reported 08/25/18 11:50 Absolute Lymphs (auto) Not Reported 08/25/18 11:50 Absolute Monos (auto) Not Reported 08/25/18 11:50 Absolute Eos (auto) Not Reported 08/25/18 11:50 Absolute Basos (auto) Not Reported 08/25/18 11:50 Absolute Nucleated RBC Not Reported 08/25/18 11:50 Immature Gran % Not Reported 08/25/18 11:50 Immature Gran # Not Reported 08/25/18 11:50 VBG Lactic Acid 0.9 mmol/L (0.7-2.1) 08/25/18 12:50 Sodium 131 mEq/L (135-145) L 08/25/18 11:50 Potassium 3.1 mEq/L (3.5-5.2) L 08/25/18 11:50 Chloride 101 mEq/L (97-110) 08/25/18 11:50 Carbon Dioxide 23 mEq/l (22-31) 08/25/18 11:50 Anion Gap 7 mEq/L (6-14) 08/25/18 11:50 BUN 24 mg/dL (7-23) H 08/25/18 11:50 Creatinine 0.8 mg/dL (0.6-1.0) 08/25/18 11:50 Estimated GFR > 60 08/25/18 11:50 Glucose 111 mg/dL (70-100) H 08/25/18 11:50 Calcium 8.6 mg/dL (8.5-10.4) 08/25/18 11:50 Magnesium 1.7 mg/dL (1.6-2.3) 08/25/18 11:50 Assessment & Plan Assessment: 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 follows with Dr. Gomez. next chemo due in a week. -consult oncology to make aware of admission Neutropenic fever- Had leukocytosis to almost 30 when in ER previously, now neutropenic. I reviewed her chart and discussed the case with the ID doctor. Her urine grew out serratia and she was given CTX in ER. -ID consult -broaden to cefepime -Blood cultures prior to abx -discuss with onc UTI- urine grew out greater than 100K CFU of serratia. discussed case with ID recommending broadening to cefepime and monitoring. no indication for gram positive coverage at this point. Hyponatremia- patient appears hypovolemic and suspect this is hypovolemic hyponatremia. IVNS started in ER. will recheck Na in am and if no correction will check urine electrolytes, Osm and consider other etiologies. Hypokalemia- also likely due to poor po intake. Started on replacement protocol with IV KCl Afib- on eliquis and sotalol. continue here Hypothyroid- on cytomel and synthroid. continue current home dose house. PPX- SCDs, eliquis Fluids- IV saline at 75 Lytes- HypoNa, HypoK Nutrition- regular diet Cor- Full Dispo- inpatient for neutropenic fever, UTI
--- NOTE | 2018-08-25 14:57 | PDMN ---
Medical Necessity Medical necessity: Pt meets INPT criteria per MD as of 08/25/18 and MCG M-300 UTI (est. LOS >2 MN for eval/mgmt of UTI with hx of transitional cell carcinoma on chemo, neutropenic fever, indwelling urostomy, afib, hyponatremia, hypokalemia).
[2018-08-25] MEDS: NS 1,000 ML IV SCH (15:30)
[2018-08-25] MEDS: POTASSIUM Cl (KCl) 50 ML IV SCH ×2 (19:17→21:46)
[2018-08-25] MEDS: OLANZapine 2.5 MG TAB PO SCH (20:12)
[2018-08-25] MEDS: SOTALOL HCL 80 MG TAB PO SCH (20:13)
[2018-08-25] MEDS: APIXABAN 5 MG TAB PO SCH (20:13)
[2018-08-25] MEDS: CEFEPIME HCL 2 GM in NS 100 ML IV SCH (20:15)
[2018-08-26 05:11] LABS: PLATELET COUNT 113 10^3/uL (150-400)
[2018-08-26] MEDS: LIOTHYRONINE SODIUM 5 MCG TAB PO SCH (06:14)
[2018-08-26] MEDS: LEVOTHYROXINE 88 MCG TAB PO SCH (06:14)
[2018-08-26] MEDS: NS 1,000 ML IV SCH (07:01)
[2018-08-26] MEDS: SOTALOL HCL 80 MG TAB PO SCH ×2 (07:30→19:26)
[2018-08-26] MEDS: APIXABAN 5 MG TAB PO SCH ×2 (07:33→19:27)
[2018-08-26] MEDS: CEFEPIME HCL 2 GM in NS 100 ML IV SCH ×3 (08:12→23:32)
[2018-08-26] MEDS ORDERED: POTASSIUM CL 10 MEQ TAB PO ONE (08:16)
[2018-08-26] MEDS ORDERED: MAGNESIUM SULF 1 GM/DEXTROSE 100 ML IV ONE (09:52)
--- NOTE | 2018-08-26 12:37 | GCON ---
ONCOLOGY CONSULTATION DATE OF CONSULTATION: 08/26/2018 REQUESTING PHYSICIAN: Dr. Guillermo Hauser REASON FOR CONSULTATION: Febrile neutropenia in a patient with bladder cancer. 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 She was initially diagnosed in 2013 with a superficial bladder cancer. She underwent intravesical treatments, but ultimately developed left ureteral obstruction due to the tumor and had a radical cystectomy. She received no further therapy at that time. In May of this year, she developed some hematuria, was found to have a mass in the left kidney. A biopsy showed a high-grade urothelial carcinoma. She was seen at [facility], where it was recommended that she receive neoadjuvant chemotherapy with dose-dense MVAC chemotherapy for a total of 4 cycles, followed by nephrectomy. She received her 1st cycle in [place] and then the 2nd cycle was given here on August 18. The following day, she received Neulasta in clinic. Seven days later, she developed a fever to 101.5, and was seen in the emergency department. She was not neutropenic and no focal findings were seen, and she was discharged to home. She continued to have high fevers and felt progressively weaker, and ultimately returned to the emergency department yesterday where she was found to be neutropenic with a white count of 0.92. She was admitted to the hospital and placed on broad-spectrum antibiotics. She still feels very tired, but is feeling somewhat better. PAST MEDICAL HISTORY: 1. Superficial transitional cell carcinoma of the bladder status post cystectomy. 2. Atrial fibrillation. 3. Status post hysterectomy. 4. Status post right total hip replacement in April 2018. CURRENT MEDICATIONS: Eliquis 5 mg p.o. twice daily, cefepime 2 g q.8 hours, gabapentin, Synthroid 88 mcg p.o. daily, Cytomel 5 mcg p.o. daily, Zyprexa 1.25 mg p.o. q. h.s., sotalol 120 mg p.o. b.i.d. ALLERGIES: She is allergic to nitrofurantoin. FAMILY HISTORY: Her sister had breast cancer in her 60s. SOCIAL HISTORY: She has a 7 pack year smoking history and quit several decades ago. 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 This is believed to result in occupational exposure that led to her bladder cancer. REVIEW OF SYSTEMS: Aside from pertinent positives in HPI, a 14-point review of systems is negative. EXAMINATION: VITAL SIGNS: Her temperature is 36.8, blood pressure 116/64, heart rate 72, oxygen saturation 96% on room air. GENERAL: She was chronically ill appearing, though in no acute distress. HEENT: Sclerae anicteric. Oropharynx is clear. NECK: Supple without lymphadenopathy. LUNGS: Clear to auscultation bilaterally. CARDIAC: Regular rate and rhythm. No murmurs, gallops, rubs. ABDOMEN: Normoactive bowel sounds, nontender, nondistended. EXTREMITIES: Without edema. 2+ pulses. NEUROLOGICAL: She was alert and oriented x3. Strength and sensation were normal. SKIN: No petechiae or purpura. LABORATORY DATA: Today white count 1.04 with an ANC of 70, hemoglobin 10.4, platelets of 113. Sodium 136, potassium 3.3, chloride 110, bicarb 21, BUN 16, creatinine 0.6, albumin 3.1. The remainder of the liver function tests were normal. IMPRESSION: This is a 77-year-old woman receiving intensive neoadjuvant chemotherapy for transitional cell carcinoma. She presents with febrile neutropenia. She remains profoundly neutropenic, though is clinically stable on broad-spectrum antibiotics. RECOMMENDATIONS: 1. Continue broad-spectrum antibiotics until her ANC is a greater than 500. At that point, it may be reasonable to transition her to oral medications and consider discharge. 2. She will need to follow up with Dr. Dionne Gomez, her oncologist in the outpatient setting to discuss any need of modifications to her regimen for the final 2 cycles. Thank you for this consultation. We will continue to follow patient closely with you while she is in the hospital. /[id number]/MODL MTDD
--- NOTE | 2018-08-26 13:21 | HOSPPROG ---
Hospitalist Progress Note Assessment/Plan: 77 year old female with pmh of transitional cell carcinoma of the bladder, with presumed new mets to the kidney, on chemotherapy admitted with neutropenic fever. 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 follows with Dr. Gomez. next chemo due in a week. -Oncology has seen, recommends follow up with Primary oncologist. Neutropenic fever- Had leukocytosis to almost 30 when in ER previously, now neutropenic. I reviewed her chart and discussed the case with the ID doctor. Her urine grew out serratia and she was given CTX in ER. we transitioned her to cefepime per ID recommendation. Oncology has also seen and recommends keeping patient in house with current treatment. -continue cefepime -Monitor counts -No filgrastim per on -ID/Onc consulting UTI- urine grew out greater than 100K CFU of serratia. discussed case with ID recommending broadening to cefepime and monitoring. no indication for gram positive coverage at this point. Hyponatremia- hypovolemic hyponatremia. responded to intravenous saline. Hypokalemia- conitnues to have low K. Replacement protocol ordered. Afib- on eliquis and sotalol. continue here Hypothyroid- on cytomel and synthroid. continue current home dose house. PPX- SCDs, eliquis Fluids- IV saline at 75 Lytes- HypoNa, HypoK Nutrition- regular diet Cor- Full Dispo- inpatient for neutropenic fever, UTI Subjective: patient still weakn and tired but improved. Wants to go home. Objective: Vital Signs Temp Pulse Resp BP Pulse Ox 36.6 C 72 16 126/69 H 100 08/26/18 12:20 08/26/18 12:20 08/26/18 12:20 08/26/18 12:20 08/26/18 12:20 Laboratory Results 08/26/18 04:30 08/26/18 04:30 08/25/18 08/26/18 08/27/18 05:59 05:59 05:59 Intake Total 3846 Output Total 1000 650 Balance 2846 -650 - Physical Exam Constitutional: no apparent distress, appears nourished, not in pain Eyes: PERRL, anicteric sclera, EOMI Ears, Nose, Mouth, Throat: moist mucous membranes, hearing normal, ears appear normal, no oral mucosal ulcers Cardiovascular: regular rate and rhythym, no murmur, rub, or gallop Respiratory: no respiratory distress, no rales or rhonchi, clear to auscultation Gastrointestinal: normoactive bowel sounds, soft, non-tender abdomen, no palpable masses Genitourinary: no bladder fullness, no bladder tenderness, no renal bruits Skin: no rashes or abrasions, no fluctuance, no induration Musculoskeletal: full muscle strength, no muscle tenderness, normal joint ROM Neurologic: AAOx3, sensation intact bilaterally Psychiatric: interacting appropriately, not anxious, not encephalopathic, thought process linear Lymph, Heme, Immunologic: no cervical LAD, no supraclavicular LAD ICD10 Worksheet Patient Problems: Problems Problem Status Onset 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
--- NOTE | 2018-08-26 13:51 | ASMTCMCOM ---
CM Note CM Note Notes: Chart reviewed for discharge planning purposes 77 year old female admitted via ED with ongoing fever and weakness, positive for UTI has hx of bladder cancer with mets. Last dc from [facility] 08/19. CM to follow for needs. Plan: TBD Date Signed: 08/26/2018 01:50 PM Electronically Signed By:Sharron Baldwin RN
[2018-08-26] MEDS: OLANZapine 2.5 MG TAB PO SCH (20:29)
--- NOTE | 2018-08-26 23:35 | GCON ---
INPATIENT INFECTIOUS DISEASE CONSULTATION REFERRING PHYSICIAN: Dr. Barber REASON FOR REFERRAL: Febrile neutropenia. HISTORY OF PRESENT ILLNESS: The patient is a 77-year-old female with underlying known transitional c ell carcinoma of the urinary tract. The patient has a history of bladder cancer and cystectomy. She now has an ileal conduit. Apparently, she has been diagnosed with upper urinary tract transitional disease. She is on chemotherapy currently. She had her last cycle Saturday of last week, but presente d to the ER with complaints of weakness and fever on August 22. She was evaluated and discharged h ome at that time. However, she continues to feel worse and was requiring Tylenol every 6 hours to tr eat the subjective fevers at home. She re-presented to [facility] and was admitted on August 25. She was started empirically on cefepime. She also received volume resuscitation in the emergency room. Currently, she is resting comfortably in her hospital bed. She feels improved alth ough still weakened relative to her baseline function. She has had no significant fevers documented since admission. She is somewhat insistent that she would like to go home. PAST MEDICAL HISTORY: 1. Atrial fibrillation. 2. Transitional cell carcinoma of the urinary tract. PAST SURGICAL HISTORY: 1. Status post hysterectomy. 2. Status post cystectomy and ileal conduit. ANTIBIOTICS: Cefepime. ALLERGIES: The patient is allergic to nitrofurantoin. She has also been told to avoid fluoroquinolo deion, but that is not due to allergy. That is instead secondary to concern for GI microbiome disrupti on. SOCIAL HISTORY: The patient is a remote smoker. No significant alcohol or drug use. She lives at [facility]. FAMILY HISTORY: Reviewed but noncontributory. REVIEW OF SYSTEMS: Other than that detailed above in the history of present illness, a comprehensive 10-system review is negative. PHYSICAL EXAMINATION: VITAL SIGNS: Temperature maximum is 37.8, temperature current is 36.6, heart rate is 72, respiratory rate is 16, blood pressure is 126/69. GENERAL: The patient is a well-formed , well-nourished older female in no acute distress. She is not toxic in appearance. She is alert an d oriented x3. She is pleasant in demeanor. HENT: Normocephalic for age. Atraumatic. No scleral icterus. No oral lesion or drainage from the nares. EYES: Lids and conjunctivae are within normal limits. Pupils are equal and round bilaterally. NECK: Supple. No meningismus. LUNGS: Clear to a uscultation bilaterally. Good effort. HEART: Regular rate and rhythm. No murmur, rub, or gallop h eard. No significant peripheral edema. ABDOMEN: Soft, nontender. Ileal conduit noted. No mass no lamont. SKIN: Warm and dry to the touch. No rash or lesion noted. MUSCULOSKELETAL: No muscle tender ness is noted. No joint line effusion or arthritis seen. NEURO: Cranial nerves 2-12 seem to be int act. Peripheral sensation seems intact in extremities. LABORATORY DATA: The patient had a CBC dated 08/26/2018, shows a white blood cell count of 1.04, hem oglobin of 10.4, hematocrit 30.8, platelet count of 113. Differential shows 71.2 lymphocytes, neutro félix percentage of only 6.7%. Absolute neutrophil count is 70. Serum chemistries on 08/26/2018 are all within normal limits apart from a mild hypokalemia of 3.3. Creatinine 0.6. MICROBIOLOGIC DATA: Patient has blood cultures dated 08/25/2014, which are no growth to date. ASSESSMENT: Neutropenic fever, although the patient has not shown any objective fevers since admissi on. We will continue her on cefepime considering her significantly intense neutropenia as a result o f her chemotherapy. The patient has been placed on neutrophil stimulation as an outpatient. We will follow her neutrophil count and fever curve going forward. PLAN: 1. Continue cefepime at present dose. 2. Follow neutrophil count and fever curve. /[id number]/MODL
[2018-08-27] MEDS: POTASSIUM Cl (KCl) 50 ML IV SCH ×2 (01:47→02:43)
[2018-08-27] MEDS: LEVOTHYROXINE 88 MCG TAB PO SCH (06:20)
[2018-08-27] MEDS: LIOTHYRONINE SODIUM 5 MCG TAB PO SCH (06:20)
[2018-08-27 06:54] LABS: PLATELET COUNT 95 10^3/uL (150-400)
[2018-08-27] MEDS: SOTALOL HCL 80 MG TAB PO SCH ×2 (07:08→19:29)
[2018-08-27] MEDS: APIXABAN 5 MG TAB PO SCH ×2 (07:08→19:29)
[2018-08-27] MEDS ORDERED: MAGNESIUM SULF 1 GM/DEXTROSE 100 ML IV ONE (07:33)
[2018-08-27] MEDS ORDERED: POTASSIUM CL 10 MEQ TAB PO ONE ×2 (07:33→19:46)
[2018-08-27] MEDS: CEFEPIME HCL 2 GM in NS 100 ML IV SCH ×2 (09:18→16:02)
--- NOTE | 2018-08-27 10:45 | SOAPPROG ---
TAIWO Progress Note Assessment/Plan: Assessment: - TCCA L renal pelvis - currently on neoadjuvant MVAC. Got Anca in the office on 19 AUG 2018. - Pancytopenia - no transfusions needed today - Neutropenic fever - afebrile but still needs IV abx. ANC ~ 300 today. She is not happy about being in the hospital in general, but understands why she is here. Plan: - Continue IV abx - continue to monitor counts - ambulation encouraged - Dr. Gomez notified of admission Subjective: Frustrated with need for admission. Hungry. Wants a cheeseburger. Objective: Vital Signs Temp Pulse Resp BP Pulse Ox 36.7 C 74 16 107/61 97 08/27/18 07:31 08/27/18 07:31 08/27/18 07:31 08/27/18 07:31 08/27/18 07:31 Laboratory Results 08/27/18 06:10 08/27/18 06:10 08/25/18 08/26/18 08/27/18 23:59 23:59 23:59 Intake Total 2600 2246 400 Output Total 1000 1850 1350 Balance 1600 396 -950 Physical Exam - Physical Exam General Appearance: alert, no apparent distress Respiratory: lungs clear Cardiac/Chest: irregularly irregular Abdomen: non-tender, soft, other (ileal conduit) Skin: warm/dry, pallor Neuro/Psych: alert, normal mood/affect, oriented x 3 ICD10 Worksheet Patient Problems: Problems Problem Status Onset 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
[2018-08-27] MEDS ORDERED: K PHOS 15 MMOL in D5W 250 ML IV ONE (12:00)
--- NOTE | 2018-08-27 17:01 | PCMIDPN ---
Assessment/Plan: Assessment/Plan: * Neutropenic fever: Clinically improving with ANC approximately 300 today and no documented fever since admission. Blood cultures remain negative. Prior urine culture with growth of greater than 100,000 Serratia. In the setting of ileal conduit, not unexpected to have bacteriuria. Will continue cefepime given absence of fever and clinical improvement recognizing that Serratia can have inducible beta lactamase production. Continue to monitor ANC with plans to transition to oral levofloxacin if she shows ongoing clinical improvement and resolution of neutropenia. 08/27/18 16:58 08/27/18 16:59 Subjective: Patient feels better but still quite fatigued. Objective: Vital Signs Temp Pulse Resp BP Pulse Ox 36.8 C 78 16 108/59 L 98 08/27/18 16:21 08/27/18 16:21 08/27/18 16:21 08/27/18 16:21 08/27/18 16:21 Laboratory Results 08/27/18 06:10 08/27/18 06:10 08/26/18 08/27/18 08/28/18 05:59 05:59 05:59 Intake Total 3846 1400 Output Total 1000 3200 Balance 2846 -1800 Cefepime # 2 Blood cultures x2 no growth Urine culture greater than 100,000 Serratia Laboratory Tests 08/27/18 06:10 Total Bilirubin 0.3 AST 18 ALT 24 Alkaline Phosphatase 82 - Physical Exam General Appearance: alert, no apparent distress EENT: No scleral icterus, No thrush, No conjunctival petechiae Respiratory: lungs clear, No respiratory distress Cardiac/Chest: regular rate, rhythm, systolic murmur (2/6 right upper sternal border) Extremities: No inflammation Abdomen: non-tender, other (Ileal conduit stoma pink), No distended Skin: No rash - Line/s RUE PICC Lines: No drainage, No erythema ICD10 Worksheet Patient Problems: Problems Problem Status Onset 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
--- NOTE | 2018-08-27 19:13 | HOSPPROG ---
Hospitalist Progress Note Assessment/Plan: The patient is a 37-year-old female with PMH transitional cell carcinoma who was admitted for neutropenic fever. This patient is new to me. Reviewed patient's chart/records for this visit. ASSESSMENT/PLAN: Neutropenic fevers - ANC 310 Chemotherapy adverse effects Pancytopenia Transitional cell carcinoma Urothelial carcinoma of L kidney, on chemo H/o supercial tumor in L renal pelvis, s/p total cystectomy/hysterectomy AF, on Eliquis -Continue cefepime. -ID and Onc recs appreciated. -FU Blood Cx. -Urine Cx likely grew a chronic colonizer. -DC SCDs. -Check AM labs. -ISU/PT/OT. VTE prophylaxis: Eliquis Code Status: Full code Status: Inpatient for greater than 2 midnight stay Disposition: Med surge with discharge anticipated when ANC goes above 500. ____ SUBJECTIVE: Today the patient is in a bad mood. She Is frustrated with having to stay in the hospital - we discussed several issues. OBJECTIVE: Physical Exam: General: The patient is a female who is alert and in no acute distress. HEENT: normocephalic, extraocular movements intact, conjunctivae clear. Mucous membranes moist. Neck: trachea midline, no visible masses. Resp: unlabored. Abd: soft and nondistended. Musculoskeletal: Normal or reduced muscle tone/bulk. Neuro: cranial nerves II XII grossly intact. Intact gross motor and sensory function. Psych: Appropriate mood and appropriate affect. Skin: Mild pallor. No petechiae. Heme/lymph: Not examined. : Suprapubic catheter noted, draining. Labs/Imaging/Other Tests: Personally reviewed/interpreted. Objective: Vital Signs Temp Pulse Resp BP Pulse Ox 36.8 C 78 16 108/59 L 98 08/27/18 16:21 08/27/18 16:21 08/27/18 16:21 08/27/18 16:21 08/27/18 16:21 Laboratory Results 08/27/18 06:10 08/27/18 18:30 08/26/18 08/27/18 08/28/18 05:59 05:59 05:59 Intake Total 3846 1400 1450 Output Total 1000 3200 760 Balance 2846 -1800 690 - Time Spent With Patient Time Spent with Patient: greater than 35 minutes Time Spent with Patient: Greater than 35 minutes spent on this patients care, greater than 50% of time spent counseling, educating, and coordinating care regarding the above mentioned plan. 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
[2018-08-27] MEDS: OLANZapine 2.5 MG TAB PO SCH (21:30)
[2018-08-28] MEDS: CEFEPIME HCL 2 GM in NS 100 ML IV SCH ×2 (00:48→08:43)
[2018-08-28] MEDS: LIOTHYRONINE SODIUM 5 MCG TAB PO SCH (05:02)
[2018-08-28] MEDS: LEVOTHYROXINE 88 MCG TAB PO SCH (05:02)
[2018-08-28 05:17] LABS: PLATELET COUNT 87 10^3/uL (150-400)
[2018-08-28] MEDS ORDERED: POTASSIUM CL 10 MEQ TAB PO ONE (07:47)
[2018-08-28] MEDS ORDERED: MAGNESIUM SULF 2 GM/WATER 50 ML IV ONE (07:47)
[2018-08-28] MEDS: SOTALOL HCL 80 MG TAB PO SCH (08:42)
[2018-08-28] MEDS: APIXABAN 5 MG TAB PO SCH (08:43)
[2018-08-28] MEDS ORDERED: K PHOS 10 MMOL in D5W 250 ML IV ONE (12:00)
[2018-08-28] MEDS ORDERED: POTASSIUM/SODIUM PHOSPHATE 1 PKT PO SCH (12:00)
--- NOTE | 2018-08-28 12:25 | SOAPPROG ---
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 Got Lisata in the office on 19 AUG 2018. - Pancytopenia - no transfusions needed today - Neutropenic fever - ANC now 4480. Change to oral Abx vs. D/C Abx. ID input pending. - She will need to f/u with Dr. Dionne Gomez to discuss risk/benefit of additional chemo vs. surgery vs. change in chemo regimen. Plan: - Change to oral abx - OK to D/C to home from [facility] - f/u with Dr. Gomez within the week for additional treatment planning. Subjective: No new complaints. Eating a salad. Objective: Vital Signs Temp Pulse Resp BP Pulse Ox 36.5 C 69 17 126/71 H 98 08/28/18 11:24 08/28/18 11:24 08/28/18 11:24 08/28/18 11:24 08/28/18 11:24 Laboratory Results 08/28/18 05:05 08/28/18 05:05 08/26/18 08/27/18 08/28/18 23:59 23:59 23:59 Intake Total 2246 1850 Output Total 1850 2110 1625 Balance 396 260 1621 Physical Exam - Physical Exam General Appearance: alert, no apparent distress Respiratory: lungs clear Cardiac/Chest: regular rate, rhythm Abdomen: normal bowel sounds, non-tender Neuro/Psych: alert, normal mood/affect, oriented x 3 ICD10 Worksheet Patient Problems: Problems Problem Status Onset 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
--- NOTE | 2018-08-28 14:35 | PCMIDPN ---
Assessment/Plan: Assessment/Plan: * Neutropenic fever: ANC recovered without any ongoing fever. Patient feels significantly improved clinically. Quinolones limited by concomitant use of sotalol with risk of QT prolongation. Will plan 3 days of Augmentin 875 twice daily with suspicion will continue to recover since no longer neutropenic. Potential side effects including diarrhea discussed with patient. Reviewed with patient that will not have activity against Serratia in urine but this may simply represent colonization with ileal conduit. Discussed with her that if side effects become prominent/problematic that she may discontinue Augmentin with observation off antibiotics. 08/28/18 14:32 08/28/18 14:34 Subjective: Patient feels markedly improved. Eager to go home. No diarrhea. Objective: Vital Signs Temp Pulse Resp BP Pulse Ox 36.5 C 69 17 126/71 H 98 08/28/18 11:24 08/28/18 11:24 08/28/18 11:24 08/28/18 11:24 08/28/18 11:24 Laboratory Results 08/28/18 05:05 08/28/18 05:05 08/27/18 08/28/18 08/29/18 05:59 05:59 05:59 Intake Total 1400 1450 Output Total 3200 1660 725 Balance -1800 -210 -725 Cefepime # 3 Blood cultures x2 no growth Urine culture 08/23/18 Serratia from ileal conduit - Physical Exam General Appearance: alert, no apparent distress EENT: No scleral icterus, No thrush Respiratory: lungs clear, No respiratory distress Cardiac/Chest: regular rate, rhythm Abdomen: non-tender, No distended - Line/s RUE PICC Lines: No drainage, No erythema ICD10 Worksheet Patient Problems: Problems Problem Status Onset 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
--- NOTE | 2018-08-28 15:13 | PDDCSUM ---
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 Hank Adrian Infectious Disease-Dr. Guillermo Hauser [facility] Course: The patient is a 77-year-old female with a past medical history of urothelial carcinoma on chemotherapy who was admitted for neutropenic fevers. Prior to this admission, she had come to the ED feeling unwell, but was discharged to home. No identifiable source of infection was found. Blood cultures were negative for growth. 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 The patient had received a shot of Neulasta on August 19 and her white blood cell count increased to normal by the end of her stay. On discharge, her ANC was 4480. Patient had received cefepime throughout hospital visit. On discharge she was given 3 days of Augmentin twice daily to continue taking at home. She was back to her baseline , but since she is generally weak she was continued on home healthcare. She was noted to have electrolyte abnormalities including hypomagnesemia, hypokalemia, and hypophosphatemia. She was noted to have poor p.o. intake throughout the hospital visit and she stated that she would have better oral intake at home when she could control her diet. She was recommended to have her labs checked again early next week to ensure she has adequate nutrition. Physical Exam: Gen - NAD, alert, oriented. Rresp: unlabored effort of breathing. MSK: ambulatory. Condition: Fair. Discharged to: Home with home healthcare. Pertinent tests/labs/imaging: Blood cultures-no growth-4 sets (from 08/22 and from 08/25) Medications: Please see med rec form. New meds? Special instructions: Take Neutra Phos for 2 days (contains potassium and phosphorus). May save the other 2 days worth to take in the future, if phosphorus is low again. Goal phos is 2.5-4.5. Goal potassium is 4.0-5.2. Take daily magnesium supplement. Goal 2.0-2.3. Take daily vitamins. Recheck all labs with Dr. Gomez sometime next week. Hold off on probiotic, per Infectious Disease recommendations. May stop antibiotic if you get diarrhea. Return to ED/hospital if you have worsening symptoms. Ensure follow up with Dr. Gomez and your oncologist as instructed. Seek medical attention for fever, chills, weakness, uncontrolled pain, nausea, shortness of breath, dizziness. Follow up: Oncologist - Dr. Jg Gomez - 1 week. PCP - Dr. Kallie Cooper - as scheduled. > 30 minutes of total time was spent on counseling and coordination of care for this patient's discharge.
[2018-08-28 15:54] VITALS: BP 134/74
--- NOTE | 2018-08-28 15:55 | ASMTDCNOTE ---
Case Management Discharge Discharge Order Complete? Answers: Yes Patient to Obtain Answers: via Family Medications Transportation Arranged Answers: Family/Friends Faxed Final Orders Answers: Yes Agency/Facility Transfer Answers: Yes Report Printed & Faxed to Receiving Agency Discharge Comments Notes: CM discussed discharge plan with pt. CM submit D/C orders to [facility]. Pt reports family is to care for her and she recieves meals and home caregiving services through [facility]. No other CM needs identified. Plan: Home with [facility]. Date Signed: 08/28/2018 03:55 PM Electronically Signed By:SCOOTER Finn
--- NOTE | 2018-08-28 15:56 | ASDISCHSUM ---
Discharge Information Plan Status:Home with Home Health Medically Cleared to Leave: Discharge Date:08/28/2018 05:11 PM CM D/C Disposition:Home Health Service ADT D/C Disposition:Home Health Service Projected Discharge Date:08/28/2018 11:00 AM Transportation at D/C:Family Discharge Delay Reason: Follow-Up Date:08/28/2018 11:00 AM Discharge Slot: Final Diagnosis: Placement Information Referral Type:*Home Health Care Services Referral ID:[id number] Provider Name:[facility] ([facility]) Address 1:[address] [address] Address 2: City:[place] Selection Factors: State:[place] Patient Contact Information Contact Name:ERLINARACELIMARTINKACI Relationship:Daughter Address: City: [facility] Phone: [facility]/Zip Code: Email: Financial Information Financial Class:Medicare Primary Plan Desc:MEDICARE INPATIENT Primary Plan Number:[id number] Secondary Plan Desc:YOLI LOCKHARTTY Secondary Plan Number:[id number] Assessment Information LACE LACE Length of stay for Answers: 3 days current admission Comorbidities - select Answers: Any tumor (including all that apply lymphoma or leukemia) # of Emergency department Answers: 1-2 visits in the last 6 months Score: 6 Date Signed: 08/28/2018 03:56 PM Electronically Signed By:SCOOTER Finn ANETTE CM Progress Note CM Note CM Note Notes: Chart reviewed for discharge planning purposes 77 year old female admitted via ED with ongoing fever and weakness, positive for UTI has hx of bladder cancer with mets. [facility] dc from [facility] 08/19. CM to follow for needs. Plan: TBD Date Signed: 08/26/2018 01:50 PM Electronically Signed By:Sharron Baldwin RN Case Management Discharge Plan Note Case Management Discharge Discharge Order Complete? Answers: Yes Patient to Obtain Answers: via Family Medications Transportation Arranged Answers: Family/Friends Faxed Final Orders Answers: Yes Agency/Facility Transfer Answers: Yes Report Printed & Faxed to Receiving Agency Discharge Comments Notes: CM discussed discharge plan with pt. CM submit D/C orders to [facility]. Pt reports family is to care for her and she recieves meals and home caregiving services through [facility] [employer]. No other CM needs identified. Plan: Home with [facility]. Date Signed: 08/28/2018 03:55 PM Electronically Signed By:SCOOTER Finn Intervention Information
--- NOTE | 2018-08-28 16:54 | PDIAF ---
- Diagnosis Diagnosis: Chemotherapy AE, Urothelial carcinoma of L kidney, Malnutrition Code Status: Full Code - Medication Management Retirement Antibiotics: Augmentin 875mg po BID x 3 days. Discharge Medications: electronically signed and located in the Home Medication List. PICC Care - Routine: Yes - Orders Services needed: Home Care, Registered Nurse, Physical Therapy, Occupational Therapy Home Care Face to Face: I certify that this patient was under my care and that I had the required [id number] encounter meeting the encounter requirements on the discharge day. My findings support the fact that the patient is homebound as defined in Home Care Face to Face Continued: [facility] Chapter 7 Medicare Benefits Manual 30.1.1 , The condition of the patient is such that there exists a normal inability to leave home and consequently, leaving home would require a considerable and taxing effort. Isolation Type: Neutropenic Isolation Diet Recommendation: no restrictions on diet Diet Texture: Regular Texture Diet Additional Instructions: Take Neutra Phos for 2 days (contains potassium and phosphorus). May save the other 2 days worth to take in the future, if phosphorus is low again. Goal phos is 2.5-4.5. Goal potassium is 4.0-5.2. Take daily magnesium supplement. Goal 2.0-2.3. Take daily vitamins. Recheck all labs with Dr. Gomez sometime next week. Hold off on probiotic, per Infectious Disease recommendations. May stop antibiotic if you get diarrhea. Return to ED/hospital if you have worsening symptoms. Ensure follow up with Dr. Gomez and your oncologist as instructed. Seek medical attention for fever, chills, weakness, uncontrolled pain, nausea, shortness of breath, dizziness. - Follow Up Care Current Providers and Referrals: Kallie Cooper MD [Primary Care Provider] - follow up as scheduled Jg Gomez MD [Medical Doctor] - follow up in 1 week
== END 2018-08-28 17:11 | disposition home health service (06) | DRG 809 ==
LOC: F1N 14:31
PROVIDERS: ADMIT Internal Medicine; ATTEND Internal Medicine
DX: D70.9 Neutropenia, unspecified (principal); D61.810 Antineoplastic chemotherapy induced pancytopenia; T45.1X5A Adverse effect of antineoplastic and immunosuppressive drugs, initial encounter; C64.2 Malignant neoplasm of left kidney, except renal pelvis; E87.1 Hypo-osmolality and hyponatremia; E87.6 Hypokalemia; I48.91 Unspecified atrial fibrillation; C67.9 Malignant neoplasm of bladder, unspecified; G47.33 Obstructive sleep apnea (adult) (pediatric); M41.9 Scoliosis, unspecified; E03.9 Hypothyroidism, unspecified; H93.19 Tinnitus, unspecified ear; I10 Essential (primary) hypertension; Z93.6 Other artificial openings of urinary tract status; B96.89 Other specified bacterial agents as the cause of diseases classified elsewhere; Z90.5 Acquired absence of kidney; Z87.891 Personal history of nicotine dependence; Z79.01 Long term (current) use of anticoagulants; Z96.641 Presence of right artificial hip joint
CPT/HCPCS: 96374; 97110-GP; 97116-GP; 97161-GP; 97166-GO; 97535-GO; G8978-GP-CJ; G8979-GP-CI; G8987-GO-CI; G8988-GO-CI; J0692; J0696; J3475; J3480

== ENCOUNTER 2018-09-03 10:08 | Observation (INO) | payer OTHER ==
[2018-09-03] MEDS ORDERED: NS W/ 20 KCl/L 1,000 ML IV ONE ×2 (10:30→18:00)
[2018-09-03] MEDS ORDERED: PROTOCOL K PHOSPHATE 1 DOSE IV PRN (10:57)
[2018-09-03] MEDS ORDERED: PROTOCOL POTASSIUM 1 DOSE MISC PRN (10:57)
[2018-09-03] MEDS ORDERED: ACETAMINOPHEN 325 MG TAB PO PRN (10:57)
[2018-09-03] MEDS ORDERED: ONDANSETRON DISINTEGRATING 4 MG TAB PO PRN (10:57)
[2018-09-03] MEDS ORDERED: ONDANSETRON 4 MG/2 ML VIAL IVP PRN (10:57)
[2018-09-03] MEDS ORDERED: PROTOCOL MAGNESIUM 1 DOSE IV PRN (10:57)
[2018-09-03] MEDS ORDERED: PROMETHAZINE HCL 25 MG/ML INJ IVP PRN (10:57)
[2018-09-03] MEDS ORDERED: NS 1,000 ML IV SCH (11:00)
--- NOTE | 2018-09-03 11:04 | PDGENHP ---
History and Physical - Chief Complaint chemo - History of Present Illness Yolanda Lagos is a very pleasant 77 year old female with pmh of transitional cell carcinoma of the bladder, status post cystectomy, with recurrence to the left kidney here for chemotherapy infusion with MVAC. She was originally diagnosed in 2013 with superficial bladder cancer, and underwent intravesical chemo but ultimately required cystectomy. In May of 2018 she was found to have a mass in her left kidney. Her current plan is to receive 4 cycles of MVAC followed by nephrectomy. She is scheduled for cycle 3 here today. Currently she feels well with no complaints. she was admitted approximately a week ago for neutropenic fever after her last cycle and treated with cefepime. No source was ever determined but she recovered and was discharged. She denies any current CP , SOB, NV, weakness, cough, fevers, or other symptoms. History Information - Allergies/Home Medication List Allergies/Adverse Reactions: gatifloxacin [From Tequin] Allergy (Verified 08/22/18 22:57) hallucinations gluten Allergy (Verified 08/22/18 22:57) guaifenesin Allergy (Verified 08/22/18 22:57) rash/headache hydrocodone Allergy (Verified 08/22/18 22:57) Vomiting nitrofurantoin Allergy (Verified 08/22/18 22:57) chills/fever oxycodone Allergy (Verified 08/22/18 22:57) Vomiting quinidine [From Quinidex Extentabs] Allergy (Verified 08/22/18 22:57) drug induced hepatitis Home Medications: Apixaban [Eliquis] 5 mg PO BID@071930 02/28/18 [Last Taken 08/25/18] Butenafine HCl 1 bernie TP DAILY PRN 02/28/18 [Last Taken 08/25/18] Carboxymethylcellulose 1% [Refresh Celluvisc (*)] 1 drop EACHEYE BID 02/28/18 [ Last Taken 08/25/18] Gabapentin [Neurontin 100 MG (*)] 100 - 200 mg PO HS PRN 02/28/18 [Last Taken 200mg] Levothyroxine [Synthroid 88 mcg (*)] 88 mcg PO DAILY06 02/28/18 [Last Taken ] Liothyronine Sodium [Cytomel 5 mcg (*)] 5 mcg PO DAILY06 02/28/18 [Last Taken ] OLANZapine [ZyPREXA 2.5 mg (*)] 1.25 mg PO HS 08/18/18 [Last Taken 08/24/18] Prochlorperazine Maleate [Compazine 10mg (*)] 10 mg PO TID PRN 08/18/18 [Last Taken Unknown] Sotalol HCl [Betapace 80 MG (*)] 120 mg PO BID@08/25/18 [Last Taken ] I have personally reviewed and updated: family history, medical history, surgical history - Past Medical History atrial fibrillation (hypothyroid), cancer Additional medical history: hypothyroid - Surgical History Reports: no pertinent surgical hx, cancer surgery Additional surgical history: cystectomy. ileal conduit - Family History Positive for: CAD - Social History Smoking Status: Former smoker Review of Systems Review of Systems: ROS: 10pt was reviewed & negative except for what was stated in HPI & below Physical Exam Physical Exam: Constitutional: no apparent distress, appears nourished, not in pain Eyes: PERRL, anicteric sclera, EOMI Ears, Nose, Mouth, Throat: moist mucous membranes, hearing normal, ears appear normal, no oral mucosal ulcers Cardiovascular: regular rate and rhythym, no murmur, rub, or gallop, No edema Respiratory: no respiratory distress, no rales or rhonchi, clear to auscultation Gastrointestinal: normoactive bowel sounds, soft, non-tender abdomen, no palpable masses Genitourinary: no bladder fullness, no bladder tenderness, other (cystostomy tube in place) Skin: warm, normal color, no rashes or abrasions, no fluctuance, no induration, No mottled Musculoskeletal: full muscle strength, no muscle tenderness, normal joint ROM, no joint effusions Psychiatric: interacting appropriately, not anxious, not encephalopathic, thought process linear Lymph, Heme, Immunologic: no cervical LAD, no supraclavicular LAD Assessment & Plan Assessment: Transitional cell carcinoma of the left kidney- admitted today for MVAC cycle 3 , with primary oncologist Dr. Gomez -management per oncology -antiemetics Atrial Fibrillation- on sotalol. Should be fine to continue. she is saying she cannot take zofran due to interaction with sotalol, so I will check an ECG to check Qtc. Monitor on telemetry. continue eliquis Hypothyroid- cont synthroid at 88mcg along with cytomel. PPX- SCDs, Eliquis Fluids- Intravenous saline Lytes- Check baseline BMP Nutrition- regular diet Cor- Full Dispo- observation for chemotherapy
[2018-09-03 12:06] LABS: PLATELET COUNT 308 10^3/uL (150-400)
--- NOTE | 2018-09-03 12:24 | ASMTCMCOM ---
CM Note CM Note Notes: Patient chart reviewed for discharge planning purposes. 77 year old female with history significant for bladder cancer with renal invasion admitted for chemotherapy. CM to follow for needs. Plan: TBD Date Signed: 09/03/2018 12:23 PM Electronically Signed By:Sharron Baldwin RN
[2018-09-03] MEDS ORDERED: DEXAMETHASONE 10 MG in NS 50 ML IV ONE (15:45)
[2018-09-03] MEDS ORDERED: NS IV ONE ×4 (15:45→17:40)
[2018-09-03] MEDS ORDERED: ONDANSETRON HCL IV ONE (15:45)
[2018-09-03] MEDS ORDERED: DEXAMETHASONE IV ONE (15:45)
--- NOTE | 2018-09-03 15:52 | CPEKG ---
Test Reason : OPEN Blood Pressure : / mmHG Vent. Rate : 061 BPM Atrial Rate : 062 BPM P-R Int : 184 ms QRS Dur : 082 ms QT Int : 448 ms P-R-T Axes : 072 039 060 degrees QTc Int : 452 ms SINUS RHYTHM Confirmed by Norman Tran ([id number]) on 09/03/2018 3:52:18 PM Referred By: Confirmed By:Norman Tran
[2018-09-03] MEDS ORDERED: APREPITANT IV ONE (16:00)
[2018-09-03] MEDS ORDERED: CISPLATIN IV ONE (16:30)
[2018-09-03] MEDS ORDERED: METHOTREXATE SODIUM IV ONE (17:30)
[2018-09-03] MEDS ORDERED: VINBLASTINE IV ONE (17:40)
[2018-09-03] MEDS ORDERED: DOXORUBICIN IV ONE (17:50)
--- NOTE | 2018-09-03 18:18 | PDCONSULT ---
Hub Associate Note: Patient is a 77-year-old female with a recent diagnosis of left upper tract transitional cell carcinoma admitted for her third cycle of neoadjuvant dose dense MVAC. Patient has a history of superficial transitional cell carcinoma diagnosed in 2013. Despite intravesicular mitomycin C treatments and TURBTs patient developed left ureteral obstruction due to her tumor and ended up requiring a radical cystectomy with ileal conduit formation. Most recently in May 2018 she developed hematuria and was found to have a mass in her left kidney. A biopsy socially showed high-grade urothelial carcinoma. She was seen at [facility] where dose dense MVAC neoadjuvant chemotherapy was recommended followed by left-sided nephrectomy. She received her first cycle of dose dense MVAC in [place] at [facility] which was complicated by volume overload and her second dose/cycle was given on August 18, 2018 in [place]. She did receive Neulasta after that cycle however 7 days later she developed neutropenic fever and was sent to the emergency room. No source of infection was identified. Subsequently today her doses of therapy have been reduced by 30% given such profound pancytopenia and admission for febrile neutropenia. Patient reports feeling well. She does have some neuropathy on a couple of toes on both feet but is currently grade 1. She denies any changes in her hearing. She denies fevers chills or drenching night sweats. She denies any other symptoms. Her nausea has been well controlled throughout therapy Past medical history: Superficial transitional cell carcinoma status post intravesicular therapy subsequent requiring radical cystectomy with ileal conduit Atrial fibrillation Past surgical history Radical cystectomy with ileal conduit Hysterectomy Right total hip arthroplasty April 2018 Social history: Patient has a remote trivial smoking history. 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 that led to her bladder cancer Family history: Sister with breast cancer in her 60s Review of systems: A complete 12 point review of systems is obtained and found to be negative unless indicated in history of the present illness Physical examination: Vital signs reviewed in her chart General: No acute distress nontoxic appearing female HEENT: Pupils are equal round reactive to light no scleral icterus or conjunctival pallor is appreciated oral mucosa moist on evidence of oral frontal lesions Neck: Supple Lungs: Clear to auscultation and percussion bilateral posterior lungs Cardiac: Regular in rate and rhythm without rubs thrills gallops or murmurs Abdomen: Soft nontender nondistended without any paraspinal megaly right lower quadrant urostomy Extremities: Warm well perfused 2+ dorsalis pedis and radial pulses bilaterally Neurologic: Cranial nerves II through XII are intact 5 out of 5 upper and lower extremity strength bilaterally Medications and allergies were reviewed in her electronic medical record Labs: White blood cell count 17,350 hemoglobin is 10 platelets are 308,000 and absolute neutrophil count is 13,880 elect electrolytes are normal with a creatinine of 0.6 and BUN of 14 for an estimated GFR greater than 60 Assessment and plan: Patient is a 77-year-old female with a history of superficial bladder carcinoma status post intravesicular treatment subsequently requiring a radical cystectomy with ileal conduit with a recent diagnosis of a left upper tract transitional cell carcinoma currently on cycle 3 of dose dense MVAC. Problem #1left upper tract urothelial carcinoma Patient has received 2 cycles of dose dense MVAC neoadjuvant chemotherapy. Her first dose cycle was complicated by volume overload secondary to generous hydration. Her second cycle was complicated by neutropenic fever. Currently she is admitted for cycle 3 and 30% a dose adjustment was made to her chemotherapy tube to prevent such a profound cytopenias. Currently her only toxicity from treatment is grade 1 neuropathy of the feet. Labs and clinically she is adequate for therapy at this time. Of note patient is on sotalol and so we will try to avoid QTC prolonging medications such as Zofran/Aloxi. She will use as needed Compazine and Namenda was added to her pre-therapy supportive care. She will come to clinic tomorrow for Neulasta.
[2018-09-03] MEDS: PROCHLORPERAZINE MALEATE 10 MG TAB PO PRN (20:13)
[2018-09-03] MEDS ORDERED: OLANZapine 2.5 MG TAB PO SCH (21:00)
[2018-09-03] MEDS: APIXABAN 5 MG TAB PO SCH (21:26)
[2018-09-03] MEDS: SOTALOL HCL 80 MG TAB PO SCH (21:27)
[2018-09-04] MEDS: PROCHLORPERAZINE MALEATE 10 MG TAB PO PRN ×2 (04:44→11:06)
[2018-09-04] MEDS: LIOTHYRONINE SODIUM 5 MCG TAB PO SCH (04:45)
[2018-09-04 05:05] LABS: PLATELET COUNT 279 10^3/uL (150-400)
[2018-09-04] MEDS ORDERED: LEVOTHYROXINE 88 MCG TAB PO SCH (06:00)
[2018-09-04] MEDS ORDERED: ENOXAPARIN 40 MG/0.4 ML SYR SC SCH (09:00)
[2018-09-04] MEDS: SOTALOL HCL 80 MG TAB PO SCH (09:53)
[2018-09-04] MEDS: APIXABAN 5 MG TAB PO SCH (09:55)
--- NOTE | 2018-09-04 10:54 | SOAPPROG ---
SOAP Progress Note Assessment/Plan: Assessment and plan: Patient is a 77-year-old female with a history of superficial bladder carcinoma status post intravesicular treatment subsequently requiring a radical cystectomy with ileal conduit with a recent diagnosis of a left upper tract transitional cell carcinoma currently on cycle 3 of dose dense MVAC. Problem #1 - left upper tract urothelial carcinoma Patient has received 2 cycles of dose dense MVAC neoadjuvant chemotherapy. Her first dose cycle was complicated by volume overload secondary to generous hydration. Her second cycle was complicated by neutropenic fever. Currently she is admitted for cycle 3 and 30% a dose adjustment was made to her chemotherapy doses to prevent such a profound cytopenias. Currently her only toxicity from treatment is grade 1 neuropathy of the feet. Labs and clinically she is adequate for therapy at this time. -She tolerated therapy relatively well with some nausea and gasseous distention likely secondary to the fact she didn't get Zofran - which she understands why it wasn't administered and is okay with it -She can discharge and get neulasta at [facility], and continue compazine as needed, she was given emend. Cycle #4 will be given in [place]. Objective: Vital Signs Temp Pulse Resp BP Pulse Ox 36.4 C 71 18 127/67 H 97 09/04/18 08:25 09/04/18 08:25 09/04/18 08:25 09/04/18 08:25 09/04/18 08:25 Laboratory Results 09/04/18 04:55 09/04/18 04:55 09/03/18 09/04/18 09/05/18 05:59 05:59 05:59 Intake Total 2600 Output Total 1450 Balance 1150 Physical examination: Vital signs reviewed in her chart General: No acute distress nontoxic appearing female HEENT: Pupils are equal round reactive to light no scleral icterus or conjunctival pallor is appreciated oral mucosa moist on evidence of oral frontal lesions Neck: Supple Lungs: Clear to auscultation and percussion bilateral posterior lungs Cardiac: Regular in rate and rhythm without rubs thrills gallops or murmurs Abdomen: Soft nontender nondistended without any hepatosplenomegaly right lower quadrant urostomy Extremities: Warm well perfused 2+ dorsalis pedis and radial pulses bilaterally Neurologic: Cranial nerves II through XII are grossly intact ICD10 Worksheet Patient Problems: Problems Problem Status Onset MDRO (multiple drug resistant organisms) resistance Acute Afib Acute 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
[2018-09-04 11:50] VITALS: BP 129/70
--- NOTE | 2018-09-04 12:32 | ASMTLACE ---
LACE Length of stay for Answers: 1 day current admission Comorbidities - select Answers: Any tumor (including all that apply lymphoma or leukemia) Score: 3 Date Signed: 09/04/2018 12:31 PM Electronically Signed By:Sharron Baldwin RN
[2018-09-04] MEDS ORDERED: MAGNESIUM SULF 1 GM/DEXTROSE 100 ML IV ONE (13:55)
== END 2018-09-04 16:23 | disposition home or self-care (01) ==
LOC: INTOOBSV 10:08 → F1N 10:08
PROVIDERS: ADMIT Internal Medicine; ATTEND Internal Medicine
DX: Z51.11 Encounter for antineoplastic chemotherapy (principal); C64.2 Malignant neoplasm of left kidney, except renal pelvis; Z85.51 Personal history of malignant neoplasm of bladder; I48.91 Unspecified atrial fibrillation; E03.9 Hypothyroidism, unspecified; G57.93 Unspecified mononeuropathy of bilateral lower limbs
CPT/HCPCS: 93005; G0378; G0379; J0185; J1100; J1200; J3475; J9000; J9060; J9260; J9360; J2405

== ENCOUNTER 2018-11-16 08:56 | Observation (INO) | payer OTHER ==
--- NOTE | 2018-11-16 09:26 | EDPHY ---
H & P Time Seen by Provider: 11/16/18 09:14 HPI/ROS: Chief complaint. High pulse HPI. 78-year-old female presents emergency department with rapid heart rate and apparently low blood pressure at home. She feels weak and washed out. No chest discomfort or shortness of breath. She does have a history of atrial fibrillation. Patient also had a nephrectomy 1 week ago for kidney cancer. No fever. No abdominal pain. She did take an extra metoprolol prior to arrival. 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 Blood pressure 106/70 Eyes: Pupils equal and round no pallor or injection. ENT, Mouth: Mucous membranes are moist. Respiratory: There are no retractions, lungs are clear to auscultation. Cardiovascular: Irregularly irregular rate and rhythm Gastrointestinal: Abdomen is soft and mildly tender with well-healing surgical scar midline. No evidence of infection. Surrounding ecchymosis. Neurological: Awake and alert, sensory and motor exams grossly normal. Skin: Warm and dry, no rashes. Musculoskeletal: Neck is supple nontender. Extremities symmetrical, full range of motion. Psychiatric: Patient is oriented X 3, there is no agitation. Constitutional: Initial Vital Signs Temperature (C) 36.5 C 11/16/18 09:04 Heart Rate 134 H 11/16/18 09:04 Respiratory Rate 20 11/16/18 09:04 Blood Pressure 106/70 11/16/18 09:04 O2 Sat (%) 100 11/16/18 09:04 O2 Delivery Mode Room Air Allergies/Adverse Reactions: gatifloxacin [From Tequin] Allergy (Verified 08/22/18 22:57) hallucinations gluten Allergy (Verified 08/22/18 22:57) guaifenesin Allergy (Verified 08/22/18 22:57) rash/headache hydrocodone Allergy (Verified 08/22/18 22:57) Vomiting nitrofurantoin Allergy (Verified 08/22/18 22:57) chills/fever oxycodone Allergy (Verified 08/22/18 22:57) Vomiting quinidine [From Quinidex Extentabs] Allergy (Verified 08/22/18 22:57) drug induced hepatitis Home Medications: Medication Instructions Recorded Butenafine HCl 1 bernie TP BID PRN 02/28/18 Carboxymethylcellulose 1% [Refresh 1 drop EACHEYE BID PRN 02/28/18 Celluvisc (*)] Gabapentin [Neurontin 100 MG (*)] 200 mg PO HS 02/28/18 Liothyronine Sodium [Cytomel 5 mcg 5 mcg PO DAILY06 02/28/18 (*)] Cholecalciferol Vit D3 [Vitamin D3 1,000 units PO DAILY@1200 09/03/18 (*)] Herbals/Supplements -Info Only 1 ea PO DAILY 09/03/18 Apixaban [Eliquis] 5 mg PO BID 11/16/18 Docusate Sodium [Colace] 100 mg PO PRN PRN 11/16/18 Enoxaparin [Lovenox 40 MG (*)] 40 mg SQ DAILY 11/16/18 Levothyroxine [Synthroid 75 mcg 75 mcg PO DAILY06 11/16/18 (*)] Metoprolol Tartrate [Lopressor 25 12.5 mg PO DAILY PRN 11/16/18 mg (*)] Potassium Chloride [Klor-Con] 20 meq PO PRN PRN 11/16/18 Sotalol HCl [Sotalol] 120 mg PO DAILY 11/16/18 Medical Decision Making - Diagnostics EKG Interpretation: EKG interpreted by me shows atrial flutter. Normal axis. QRS shows no significant ST elevation or depression. Rate is 106 Imaging Results: Imaging Impressions Chest X-Ray 11/16/18 09:41 Impression: No acute abnormality identified. One-view chest x-ray interpreted by me is normal Procedures: IV normal saline, monitor. Heart rate has remained about 100 or below after the patient has arrive so no rate control is given ED Course/Re-evaluation: On re-evaluation patient is stable with controlled heart rate however remains in atrial fibrillation. She feels weak. Patient and I discussed treatment plan including recommendation for admission. She expresses understanding and agreement I consulted discussed case with hospitalist, who agrees to the admission Differential Diagnosis: Atrial fibrillation I considered electrolyte abnormality, acute coronary syndrome. - Data Points Laboratory Results: Laboratory Results 11/16/18 09:30 11/16/18 09:30 11/16/18 11/16/18 11/16/18 09:33 09:30 09:30 WBC RBC Hgb Hct MCV MCH MCHC RDW Plt Count MPV Neut % (Auto) Lymph % (Auto) [place] % (Auto) Eos % (Auto) Baso % (Auto) Nucleat RBC Rel Count Absolute Neuts (auto) Absolute Lymphs (auto) Absolute Monos (auto) Absolute Eos (auto) Absolute Basos (auto) Absolute Nucleated RBC Immature Gran % Immature Gran # PT INR APTT Sodium 131 mEq/L L mEq/L (135-145) Potassium 4.6 mEq/L mEq/L (3.5-5.2) Chloride 99 mEq/L mEq/L (97-110) Carbon Dioxide 23 mEq/l mEq/l (22-31) Anion Gap 9 mEq/L mEq/L (6-14) BUN 18 mg/dL mg/dL (7-23) Creatinine 1.2 mg/dL H mg/dL (0.6-1.0) Estimated GFR 44 Glucose 103 mg/dL H mg/dL (70-100) Calcium 9.0 mg/dL mg/dL (8.5-10.4) POC Troponin I 0.02 ng/mL ng/mL (0.00-0.08) TSH 12.900 uIU/mL H uIU/mL (0.465-4.680) Thyroxine (T4) 8.53 ug/dL ug/dL (5.53-11.00) 11/16/18 11/16/18 09:30 09:30 WBC 7.09 10^3/uL 10^3/uL (3.80-9.50) RBC 3.08 10^6/uL L 10^6/uL (4.18-5.33) Hgb 9.8 g/dL L g/dL (12.6-16.3) Hct 30.0 % L % (38.0-47.0) MCV 97.4 fL fL (81.5-99.8) MCH 31.8 pg pg (27.9-34.1) MCHC 32.7 g/dL g/dL (32.4-36.7) RDW 13.5 % % (11.5-15.2) Plt Count 290 10^3/uL 10^3/uL (150-400) MPV 10.1 fL fL (8.7-11.7) Neut % (Auto) 62.5 % % (39.3-74.2) Lymph % (Auto) 10.4 % L % (15.0-45.0) [place] % (Auto) 7.8 % % (4.5-13.0) Eos % (Auto) 17.5 % H % (0.6-7.6) Baso % (Auto) 1.0 % % (0.3-1.7) Nucleat RBC Rel Count 0.0 % % (0.0-0.2) Absolute Neuts (auto) 4.43 10^3/uL 10^3/uL (1.70-6.50) Absolute Lymphs (auto) 0.74 10^3/uL L 10^3/uL (1.00-3.00) Absolute Monos (auto) 0.55 10^3/uL 10^3/uL (0.30-0.80) Absolute Eos (auto) 1.24 10^3/uL H 10^3/uL (0.03-0.40) Absolute Basos (auto) 0.07 10^3/uL 10^3/uL (0.02-0.10) Absolute Nucleated RBC 0.00 10^3/uL 10^3/uL (0-0.01) Immature Gran % 0.8 % % (0.0-1.1) Immature Gran # 0.06 10^3/uL 10^3/uL (0.00-0.10) PT 11.9 SEC L SEC (12.0-15.0) INR 0.91 (0.83-1.16) APTT 26.5 SEC SEC (23.0-38.0) Sodium Potassium Chloride Carbon Dioxide Anion Gap BUN Creatinine Estimated GFR Glucose Calcium POC Troponin I TSH Thyroxine (T4) Medications Given: Enoxaparin Sodium (Lovenox) 40 mg SC DAILY [facility] Stop: 05/15/19 11:59 Last Admin: 11/16/18 14:08 Dose: 40 mg Levothyroxine Sodium (Synthroid) 75 mcg PO DAILY06 [facility] Stop: 05/15/19 11:59 Last Admin: 11/16/18 12:42 Dose: 75 mcg Liothyronine Sodium (Cytomel) 5 mcg PO DAILY06 [facility] Stop: 05/15/19 11:59 Last Admin: 11/16/18 12:42 Dose: 5 mcg Sotalol HCl (Betapace) 120 mg PO DAILY [facility] Stop: 05/15/19 11:59 Last Admin: 11/16/18 12:42 Dose: 120 mg Discontinued Medications Apixaban (Eliquis) 5 mg PO BID [facility] Stop: 05/15/19 11:59 Last Admin: 11/16/18 14:13 Dose: Not Given Sodium Chloride (Ns) 1,000 mls @ 0 mls/hr IV EDNOW ONE; Wide Open PRN Reason: Protocol Stop: 11/16/18 09:42 Last Admin: 11/16/18 09:55 Dose: 1,000 mls Point of Care Test Results: Chemistry 11/16/18 09:33 POC Troponin I 0.02 ng/mL ng/mL (0.00-0.08) Departure - Departure Disposition: [facility] Acute Clinical Impression: Afib Qualifiers: Atrial fibrillation type: paroxysmal Qualified Code(s): I48.0 - Paroxysmal atrial fibrillation Condition: Fair
[2018-11-16] MEDS ORDERED: NS 1,000 ML IV ONE (09:41)
[2018-11-16 09:51] LABS: PLATELET COUNT 290 10^3/uL (150-400)
[2018-11-16 10:01] LABS: INR 0.91 (0.83-1.16); PROTIME(PATIENT) 11.9 SEC (12.0-15.0)
[2018-11-16] MEDS ORDERED: ACETAMINOPHEN 325 MG TAB PO PRN (11:52)
[2018-11-16] MEDS ORDERED: ONDANSETRON 4 MG/2 ML VIAL IVP PRN (11:52)
[2018-11-16] MEDS ORDERED: ONDANSETRON DISINTEGRATING 4 MG TAB PO PRN (11:52)
[2018-11-16] MEDS ORDERED: APIXABAN 5 MG TAB PO SCH (12:00)
[2018-11-16] MEDS ORDERED: DOCUSATE SODIUM 100 MG CAP PO PRN (12:00)
[2018-11-16] MEDS ORDERED: METOPROLOL TARTRATE 25 MG TAB PO PRN (12:00)
[2018-11-16] MEDS ORDERED: POTASSIUM CL 20 MEQ PKT PO PRN (12:00)
[2018-11-16] MEDS: SOTALOL HCL 80 MG TAB PO SCH (12:42)
[2018-11-16] MEDS: LIOTHYRONINE SODIUM 5 MCG TAB PO SCH (12:42)
[2018-11-16] MEDS: LEVOTHYROXINE 75 MCG TAB PO SCH (12:42)
[2018-11-16] MEDS: ENOXAPARIN 40 MG/0.4 ML SYR SC SCH (14:08)
--- NOTE | 2018-11-16 15:01 | ASMTCMCOM ---
CM Note CM Note Notes: Reviewed chart. Pt presented to the Emergency Department with complaints of a high pulse. 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 Pt is single and lives at [facility]. Her dghtr Lisandra is her emergency contact. Pt was recently open with [facility], it is unclear if she is still receiving services. Pt admitted for further evaluation and treatment. Discharge needs remain unclear at this time. CM will continue to follow. Discharge Plan: To be determined Date Signed: 11/16/2018 03:01 PM Electronically Signed By:Kyra Kumari RN
--- NOTE | 2018-11-16 15:21 | CPEKG ---
Test Reason : OPEN Blood Pressure : / mmHG Vent. Rate : 106 BPM Atrial Rate : 254 BPM P-R Int : 096 ms QRS Dur : 079 ms QT Int : 353 ms P-R-T Axes : 000 055 070 degrees QTc Int : 469 ms Atrial flutter Minimal ST depression Minimal ST elevation, inferior leads Prolonged QT interval Confirmed by Timothy Murphy ([id number]) on 11/16/2018 3:20:37 PM Referred By: TIMOTHY MURPHY Confirmed By:Timothy Murphy
[2018-11-16] MEDS ORDERED: NS 1,000 ML IV SCH (16:30)
--- NOTE | 2018-11-16 17:03 | PDGENHP ---
History and Physical - Chief Complaint Weakness, fast heart rate - History of Present Illness Mrs. Lagos came to the emergency department today because of weakness and concerns about rapid heart rate. She has had weakness since her surgery but was concerned this morning when she noticed her heart rate elevation also. She has a history of atrial fibrillation (department clinician SDr. Washington). She returned from [place] on November 13 after staying there for 2 weeks and undergoing left nephrectomy at [facility], high grade urothelial cancer, primary urologist Dr Oral Melgar. Discharge summary requested and received, copy in chart. Postoperatively she had an episode of atrial fibrillation and weakness which resolved with IV fluids. She is chronically on Eliquis, but this has been held perioperatively. She has been using 40 mg Lovenox subcu daily. Sotalol was decreased from twice a day to once a day. She denies any recent fever, cough, leg swelling, chest pain, dizziness, lightheadedness, fainting. She also denies any nausea, vomiting. She has had some mild constipation, controlling it with docusate. History Information - Allergies/Home Medication List Allergies/Adverse Reactions: gatifloxacin [From Tequin] Allergy (Verified 08/22/18 22:57) hallucinations gluten Allergy (Verified 08/22/18 22:57) guaifenesin Allergy (Verified 08/22/18 22:57) rash/headache hydrocodone Allergy (Verified 08/22/18 22:57) Vomiting nitrofurantoin Allergy (Verified 08/22/18 22:57) chills/fever oxycodone Allergy (Verified 08/22/18 22:57) Vomiting quinidine [From Quinidex Extentabs] Allergy (Verified 08/22/18 22:57) drug induced hepatitis Home Medications: Butenafine HCl 1 bernie TP BID PRN 02/28/18 [Last Taken 09/03/18 08:00] Carboxymethylcellulose 1% [Refresh Celluvisc (*)] 1 drop EACHEYE BID PRN [Last Taken 08/25/18] Gabapentin [Neurontin 100 MG (*)] 200 mg PO HS 02/28/18 [Last Taken 11/15/18] Liothyronine Sodium [Cytomel 5 mcg (*)] 5 mcg PO DAILY06 02/28/18 [Last Taken 06:00] Cholecalciferol Vit D3 [Vitamin D3 (*)] 1,000 units PO DAILY@1200 09/03/18 [ Last Taken 11/15/18] Herbals/Supplements -Info Only 1 ea PO DAILY 09/03/18 [Last Taken Unknown] Apixaban [Eliquis] 5 mg PO BID 11/16/18 [Last Taken 10/30/18] Docusate Sodium [Colace] 100 mg PO PRN PRN 11/16/18 [Last Taken Unknown] Enoxaparin [Lovenox 40 MG (*)] 40 mg SQ DAILY 11/16/18 [Last Taken 11/15/18] Levothyroxine [Synthroid 75 mcg (*)] 75 mcg PO DAILY06 11/16/18 [Last Taken ] Metoprolol Tartrate [Lopressor 25 mg (*)] 12.5 mg PO DAILY PRN 11/16/18 [Last Taken 11/15/18] Potassium Chloride [Klor-Con] 20 meq PO PRN PRN 11/16/18 [Last Taken Unknown] Sotalol HCl [Sotalol] 120 mg PO DAILY 11/16/18 [Last Taken 11/15/18] I have personally reviewed and updated: medical history, social history, surgical history - Past Medical History atrial fibrillation (hypothyroid), cancer (high grade urethelial cancer, s/p DDMVAC x 4 cycles (last dose 09/2018)) Additional medical history: hypothyroid, anemia, central sleep apnea, celiac - Surgical History Reports: appendectomy, cancer surgery, hysterectomy Additional surgical history: cystectomy, ileal conduit, right hip replacement, L nephrectomy with total ureterectomy - Family History Positive for: non-pertinent - Social History Smoking Status: Former smoker Alcohol Use: None Drug Use: None Additional social history: lives alone in apt, daughter lives nearby Review of Systems Review of Systems: ROS: 10pt was reviewed & negative except for what was stated in HPI & below Physical Exam Physical Exam: Temp Pulse Resp BP Pulse Ox 98.2 F 60 12 95/54 L 98 11/16/18 16:18 11/16/18 16:18 11/16/18 16:18 11/16/18 16:18 11/16/18 16:18 Constitutional: no apparent distress, other (thin) Eyes: anicteric sclera, EOMI Ears, Nose, Mouth, Throat: moist mucous membranes, hearing normal Cardiovascular: regular rate and rhythym, No JVD, No edema Respiratory: no respiratory distress, no rales or rhonchi, clear to auscultation Gastrointestinal: normoactive bowel sounds, other (R colostomy, midline incision CDI, LLQ drain site closed/no erythema, bruising on R mid to low abd ( from LMH injections)), No guarding, No rebound, No distension Skin: warm, No rash Neurologic: other (non focal) Psychiatric: interacting appropriately, not anxious, not encephalopathic Lab Data & Imaging Review 11/16/18 09:30 11/16/18 09:30 WBC 7.09 10^3/uL (3.80-9.50) 11/16/18 09:30 RBC 3.08 10^6/uL (4.18-5.33) L 11/16/18 09:30 Hgb 9.8 g/dL (12.6-16.3) L 11/16/18 09:30 Hct 30.0 % (38.0-47.0) L 11/16/18 09:30 MCV 97.4 fL (81.5-99.8) 11/16/18 09:30 MCH 31.8 pg (27.9-34.1) 11/16/18 09:30 MCHC 32.7 g/dL (32.4-36.7) 11/16/18 09:30 RDW 13.5 % (11.5-15.2) 11/16/18 09:30 Plt Count 290 10^3/uL (150-400) 11/16/18 09:30 MPV 10.1 fL (8.7-11.7) 11/16/18 09:30 Neut % (Auto) 62.5 % (39.3-74.2) 11/16/18 09:30 Lymph % (Auto) 10.4 % (15.0-45.0) L 11/16/18 09:30 [place] % (Auto) 7.8 % (4.5-13.0) 11/16/18 09:30 Eos % (Auto) 17.5 % (0.6-7.6) H 11/16/18 09:30 Baso % (Auto) 1.0 % (0.3-1.7) 11/16/18 09:30 Nucleat RBC Rel Count 0.0 % (0.0-0.2) 11/16/18 09:30 Absolute Neuts (auto) 4.43 10^3/uL (1.70-6.50) 11/16/18 09:30 Absolute Lymphs (auto) 0.74 10^3/uL (1.00-3.00) L 11/16/18 09:30 Absolute Monos (auto) 0.55 10^3/uL (0.30-0.80) 11/16/18 09:30 Absolute Eos (auto) 1.24 10^3/uL (0.03-0.40) H 11/16/18 09:30 Absolute Basos (auto) 0.07 10^3/uL (0.02-0.10) 11/16/18 09:30 Absolute Nucleated RBC 0.00 10^3/uL (0-0.01) 11/16/18 09:30 Immature Gran % 0.8 % (0.0-1.1) 11/16/18 09:30 Immature Gran # 0.06 10^3/uL (0.00-0.10) 11/16/18 09:30 PT 11.9 SEC (12.0-15.0) L 11/16/18 09:30 INR 0.91 (0.83-1.16) 11/16/18 09:30 APTT 26.5 SEC (23.0-38.0) 11/16/18 09:30 Sodium 131 mEq/L (135-145) L 11/16/18 09:30 Potassium 4.6 mEq/L (3.5-5.2) 11/16/18 09:30 Chloride 99 mEq/L (97-110) 11/16/18 09:30 Carbon Dioxide 23 mEq/l (22-31) 11/16/18 09:30 Anion Gap 9 mEq/L (6-14) 11/16/18 09:30 BUN 18 mg/dL (7-23) 11/16/18 09:30 Creatinine 1.2 mg/dL (0.6-1.0) H 11/16/18 09:30 Estimated GFR 44 11/16/18 09:30 Glucose 103 mg/dL (70-100) H 11/16/18 09:30 Calcium 9.0 mg/dL (8.5-10.4) 11/16/18 09:30 POC Troponin I 0.02 ng/mL (0.00-0.08) 11/16/18 09:33 TSH 12.900 uIU/mL (0.465-4.680) H 11/16/18 09:30 Thyroxine (T4) 8.53 ug/dL (5.53-11.00) 11/16/18 09:30 Visualized and Interpreted Chest x-ray results: Yes Chest X-Ray results: normal EKG Interpretation: Positive for: other (a flutter in ER, intermittently afib/ sinus on tele) Assessment & Plan Assessment: 1. Afib- chronic intermittent, CHADSVASC score 2 -a flutter in ER but now a fib/sinus -rate controlled -off eliquis chente-operatively and on 40 mg lovenox SQ per [facility] -keep solotol at qd (was BID prior to recent surgery) -consider cardiology consult vs FU with Dr Washington as outpt 2. hypothyroid -TSH high, T4 OK -no change to meds at this time, will FU with PCP as was decreased about 5 weeks ago because TSH low 3. WALTER -gentle NS hydration -recheck in AM 4. urothelial cancer, s/p L nephrectomy at [facility] 11/05/2018 -revwd pathology report with her -plans to FU there in 12/2018 -sees Dr Gomez at [facility] also 5. Anemia -recheck in AM for stability 6. sleep apnea -CPAP nightly 7. Celiac Dr Cooper, Dr Washington, Dr Gomez, Dr Joel DISPO- obs overnt on tele, hopeful discharge in AM Plan: [facility], fax for records attn [place]
[2018-11-16] MEDS ORDERED: GABAPENTIN 100 MG CAP PO SCH (21:00)
[2018-11-16] MEDS ORDERED: METHOCARBAMOL 750 MG TAB PO PRN (21:37)
[2018-11-16] MEDS ORDERED: traMADol 50 MG TAB PO PRN (21:38)
[2018-11-17] MEDS: DOCUSATE SODIUM 100 MG CAP PO SCH ×2 (00:42→08:14)
[2018-11-17 04:26] LABS: PLATELET COUNT 244 10^3/uL (150-400)
[2018-11-17] MEDS: LEVOTHYROXINE 75 MCG TAB PO SCH (07:11)
[2018-11-17] MEDS: LIOTHYRONINE SODIUM 5 MCG TAB PO SCH (07:12)
[2018-11-17] MEDS: SOTALOL HCL 80 MG TAB PO SCH (08:14)
[2018-11-17] MEDS: ENOXAPARIN 40 MG/0.4 ML SYR SC SCH (08:14)
[2018-11-17 08:19] VITALS: BP 124/69
[2018-11-17] MEDS ORDERED: ASPIRIN 81 MG CHEWABLE TAB PO SCH (09:00)
--- NOTE | 2018-11-17 12:22 | ASMTCMCOM ---
CM Note CM Note Notes: Pts case discussed in tx rounds. PT has cleared pt to d/c without any needs. Pt will most likely d/c independent when medically stable. No therapies ordered at this time. CM available for changes. Plan: Independent Date Signed: 11/17/2018 12:22 PM Electronically Signed By:SCOOTER Castanon
--- NOTE | 2018-11-17 13:59 | CPEKG ---
Test Reason : OPEN Blood Pressure : / mmHG Vent. Rate : 061 BPM Atrial Rate : 063 BPM P-R Int : 175 ms QRS Dur : 083 ms QT Int : 447 ms P-R-T Axes : 077 056 061 degrees QTc Int : 451 ms Sinus rhythm NSR has replaced atrial fibrillation noted on prior ECG Confirmed by Norman Tran ([id number]) on 11/17/2018 1:59:23 PM Referred By: Es Chinchilla Confirmed By:Norman Tran
[2018-11-17] MEDS ORDERED: SODIUM FERRIC GLUCONAT/SUCROSE 125 MG in NS 100 ML IV ONE (15:12)
--- NOTE | 2018-11-17 15:29 | PDDCSUM ---
Discharge Summary Discharge Summary: DIAGNOSES: * Acute episode Rapid A Fib, history of paroxysmal AFib * dehydration * acute renal insufficiency * anemia, with recent surgery with expected blood loss in setting of chronic anemia of malignancy/chemotherapy * s/p resection of urothelial bladder CA recurrence/colostomy in 11/05 at [facility] COMPLICATIONS: none HOSPITAL COURSE: This patient with paroxysmal AF on sotalol and anticoagulation, comes in with rapid A fib. Symptomatic with rapid palpitations, and weakness. She was also a bit dehydrated partly due to poor intake during travel. She had tried taking her prn metoprolol at home, but did not feel it helped her symptoms. Here she was hydrated and observed on cardiac monitor technician overnight and is now back in sinus , with no signs of CHF. There has been no sign of ischemia. Notably she did have rapid afib episodes while at [facility] earlier this month. For reasons that are not entirely clear to me she was instructed by physicians at [facility] to decrease her sotalol to 120 daily instead of bid. On review of her a fib history, it started around 5 years ago. She tells me she was started on sotalol 120 bid in March 2018. Since then she has had a number of A fib episodes, she can not tell me with certainty how frequently. She has prn low dose metoprolol to take at home when it occurs. Her a fib rate here was as high as 130s, but her sinus rate is often in the mid to high 50s. It is possible she would not tolerate higher doses of rate control medicine. The sotalol does not seem to be doing a great job of preventing A Fib. One could consider an AF ablation or a mau ablation/pacer procedure, but she has metastatic cancer and these may be of questionable indication for her. From what she tells me, she recalls that Dr Washington has concerns about side effects of other antiarrythmics for her. I believe it may be helpful for Dr Washington and Dr Gomez to confer, review her cancer prognosis, and then consider best option if any change were to be made for AF management. At present she is stable and can stay on current meds until she has f/u. I called the cardiology clinic and Dr Washington is away this week. I reviewed with Madison Leos who will update Dr Washington upon his return. MEDICATION CHANGES: she will change her sotalol back to 120 bid until f/u with Dr Washington FOLLOW UP: she will make an appointment to see Dr Washington for A Fib f/u she will make an appointment to see Dr Gomez for ongoing management of her tumor she has a phone appointment with her surgeon at [facility] this week
[2018-11-17] MEDS ORDERED: OLANZapine 2.5 MG TAB PO SCH (21:00)
== END 2018-11-17 17:32 | disposition home or self-care (01) ==
LOC: INTOOBSV 10:40 → F2W 11:39
PROVIDERS: ADMIT Family Medicine; ATTEND Family Medicine
DX: I48.0 Paroxysmal atrial fibrillation (principal); E86.0 Dehydration; N28.9 Disorder of kidney and ureter, unspecified; D64.81 Anemia due to antineoplastic chemotherapy; I10 Essential (primary) hypertension; Z79.01 Long term (current) use of anticoagulants; Z85.51 Personal history of malignant neoplasm of bladder; Z85.528 Personal history of other malignant neoplasm of kidney; Z90.5 Acquired absence of kidney; Z93.3 Colostomy status; Z90.710 Acquired absence of both cervix and uterus; Z90.89 Acquired absence of other organs; Z96.641 Presence of right artificial hip joint; Z87.891 Personal history of nicotine dependence
CPT/HCPCS: 71045; 93005; 97161; G0378; J1650; J2916; 84484-ER

== ENCOUNTER → 2018-12-09 | Outpatient (CLI) | payer OTHER | LOC: FIMAGING 09:55 | PROVIDERS: ATTEND Internal Medicine Hematology & Oncology | DX: R60.0 Localized edema (principal); C65.9 Malignant neoplasm of unspecified renal pelvis; C67.6 Malignant neoplasm of ureteric orifice; Z79.01 Long term (current) use of anticoagulants; Z90.5 Acquired absence of kidney ==

== ENCOUNTER 2018-12-16 18:36 | Inpatient (IN) | payer OTHER ==
--- NOTE | 2018-12-16 19:07 | EDPHY ---
H & P Time Seen by Provider: 12/16/18 19:06 HPI/ROS: CHIEF COMPLAINT: Multiple episodes of vomiting HISTORY OF PRESENT ILLNESS: Patient had pretty severe explosive gas all weekend and then this morning started having a burning in her upper abdomen. She had decreased appetite and drop a little water this morning. All day she felt nausea and then after 5:30 p.m. Started vomiting after some tea. No blood in the vomit, no diarrhea and the gases stopped, does not have any rectal output at this time. Does not feel bloated. Worse with oral intake. Symptoms moderate at this time. REVIEW OF SYSTEMS: Eye: no change in vision ENT: no sore throat Cardiac: no chest pain or syncope Pulmonary: no cough or SOB Abdomen: HPI Musculoskeletal: no back pain Skin: no rash Neuro: no headache Constitutional: no fever : no urinary symptoms A comprehensive 10 point review of systems is otherwise negative aside from elements mentioned in the history of present illness. PAST MEDICAL HISTORY: Includes hypertension, hearing loss, arthritis, IBS, nephrectomy for cancer and her kidney 6 weeks ago, anemia, atrial fibrillation on Eliquis, hysterectomy, appendectomy, cystectomy, right hip replacement Social history: Here with her daughter General Appearance: Alert and conversant, cooperative. Eyes: No scleral icterus. ENT, Mouth: Dry mucous membranes. Respiratory: Normal respiratory effort, breath sounds equal, lungs are clear to auscultation. Cardiovascular: Regular rate and rhythm. Gastrointestinal: Abdomen is soft and non tender. Urostomy in place, no rebound or guarding. Neurological: Alert, face symmetric, normal motor and sensory in extremities. Skin: Warm and dry, no rashes. Musculoskeletal: No peripheral edema. Psychiatric: Not agitated. Emergency Department course/MDM: [facility] 4, IV fluids, CT abdomen pelvis discussed and consented to evaluate for possibility of bowel obstruction. 2129: Dilated fluid-filled small bowel loops possible early bowel obstruction per Dr. Morris on CT. Also possible enteritis. Results discussed, admission hospitalist for IV fluids and observation. 2213: Rusin to admit. Smoking Status: Former smoker Constitutional: Initial Vital Signs Temperature (C) 36.6 C 12/16/18 18:44 Heart Rate 63 12/16/18 18:44 Respiratory Rate 18 12/16/18 18:44 Blood Pressure 154/70 H 12/16/18 18:44 O2 Sat (%) 100 12/16/18 18:44 O2 Delivery Mode Room Air Allergies/Adverse Reactions: gatifloxacin [From Tequin] Allergy (Verified 12/16/18 18:41) hallucinations gluten Allergy (Verified 12/16/18 18:41) guaifenesin Allergy (Verified 12/16/18 18:41) rash/headache hydrocodone Allergy (Verified 12/16/18 18:41) Vomiting mannitol Allergy (Verified 12/16/18 18:42) nitrofurantoin Allergy (Verified 12/16/18 18:41) chills/fever oxycodone Allergy (Verified 12/16/18 18:41) Vomiting quinidine [From Quinidex Extentabs] Allergy (Verified 12/16/18 18:41) drug induced hepatitis sorbitol Allergy (Verified 12/16/18 18:42) Home Medications: Medication Instructions Recorded Butenafine HCl 1 bernie TP BID PRN 02/28/18 Carboxymethylcellulose 1% [Refresh 1 drop EACHEYE BID PRN 02/28/18 Celluvisc (*)] Gabapentin [Neurontin 100 MG (*)] 200 mg PO HS 02/28/18 Liothyronine Sodium [Cytomel 5 mcg 5 mcg PO DAILY06 02/28/18 (*)] Cholecalciferol Vit D3 [Vitamin D3 1,000 units PO DAILY@1200 09/03/18 (*)] Herbals/Supplements -Info Only 1 ea PO DAILY 09/03/18 Apixaban [Eliquis] 5 mg PO BID 11/16/18 Docusate Sodium [Colace] 100 mg PO PRN PRN 11/16/18 Levothyroxine [Synthroid 75 mcg 75 mcg PO DAILY06 11/16/18 (*)] Metoprolol Tartrate [Lopressor 25 12.5 mg PO DAILY PRN 11/16/18 mg (*)] Sotalol HCl [SOTALOL] 120 mg PO BID #0 11/17/18 Estradiol 12/16/18 Medical Decision Making - Diagnostics Imaging Results: Imaging Impressions Abdomen/Pelvis CT 12/16/18 19:59 Impression: Please see details above. Findings suggest the possibility of early ileus versus small bowel obstruction. Findings and recommendations discussed with Ky Otero M.D., at 9:30 p.m. on December 16, 2018. Final report concurs with initial preliminary interpretation. Attention: This examination does not use radiographic contrast, and as such, provides only a limited evaluation of the abdomen, pelvis, and retroperitoneum. If there is further clinical suspicion for pathological conditions, a complete CT evaluation of the abdomen and pelvis utilizing intravenous, oral, and rectal contrast should be considered. Imaging: Discussed imaging studies w/ orthopedically impaired teacher Radiologist Differential Diagnosis: Differential considered including but not limited to bowel obstruction, enteritis, constipation, colitis, dehydration - Data Points Laboratory Results: Laboratory Results 12/16/18 19:32 12/16/18 19:32 12/16/18 12/16/18 12/16/18 19:37 19:32 19:32 WBC RBC Hgb POC Hgb 13.6 gm/dL gm/dL (12.6-16.3) Hct POC Hct 40 % % (38-47) MCV MCH MCHC RDW Plt Count MPV Neut % (Auto) Lymph % (Auto) [place] % (Auto) Eos % (Auto) Baso % (Auto) Nucleat RBC Rel Count Absolute Neuts (auto) Absolute Lymphs (auto) Absolute Monos (auto) Absolute Eos (auto) Absolute Basos (auto) Absolute Nucleated RBC Immature Gran % Immature Gran # RBC/WBC/PLT Morphology Platelet Estimate POC Sodium 134 mEq/L L mEq/L (135-145) Sodium 130 mEq/L L mEq/L (135-145) POC Potassium 3.9 mEq/L mEq/L (3.3-5.0) Potassium 4.2 mEq/L mEq/L (3.5-5.2) POC Chloride 98 mEq/L mEq/L (97-110) Chloride 97 mEq/L mEq/L (97-110) Carbon Dioxide 20 mEq/l L mEq/l (22-31) POC Total CO2 21 mEq/L L mEq/L (22-31) Anion Gap 13 mEq/L mEq/L (6-14) POC BUN 23 mg/dL mg/dL (7-23) BUN 23 mg/dL mg/dL (7-23) Creatinine 1.2 mg/dL H mg/dL (0.6-1.0) POC Creatinine 1.2 mg/dL H mg/dL (0.6-1.0) Estimated GFR 44 Glucose 115 mg/dL H mg/dL (70-100) POC Glucose 118 mg/dL H mg/dL (70-100) Calcium 10.0 mg/dL mg/dL (8.5-10.4) Total Bilirubin 0.6 mg/dL mg/dL (0.1-1.4) Conjugated Bilirubin 0.3 mg/dL mg/dL (0.0-0.5) Unconjugated Bilirubin 0.3 mg/dL mg/dL (0.0-1.1) AST 31 IU/L IU/L (14-46) ALT 42 IU/L IU/L (9-52) Alkaline Phosphatase 81 IU/L IU/L (38-126) Total Protein 6.8 g/dL g/dL (6.3-8.2) Albumin 4.4 g/dL g/dL (3.5-5.0) Lipase 81 IU/L IU/L (23-300) Beta HCG, Qual NEGATIVE 12/16/18 19:32 WBC 8.57 10^3/uL 10^3/uL (3.80-9.50) RBC 4.00 10^6/uL L 10^6/uL (4.18-5.33) Hgb 12.5 g/dL L g/dL (12.6-16.3) POC Hgb Hct 36.7 % L % (38.0-47.0) POC Hct MCV 91.8 fL fL (81.5-99.8) MCH 31.3 pg pg (27.9-34.1) MCHC 34.1 g/dL g/dL (32.4-36.7) RDW 12.3 % % (11.5-15.2) Plt Count 239 10^3/uL 10^3/uL (150-400) MPV 10.1 fL fL (8.7-11.7) Neut % (Auto) 86.9 % H % (39.3-74.2) Lymph % (Auto) 6.7 % L % (15.0-45.0) [place] % (Auto) 5.1 % % (4.5-13.0) Eos % (Auto) 0.4 % L % (0.6-7.6) Baso % (Auto) 0.5 % % (0.3-1.7) Nucleat RBC Rel Count 0.0 % % (0.0-0.2) Absolute Neuts (auto) 7.45 10^3/uL H 10^3/uL (1.70-6.50) Absolute Lymphs (auto) 0.57 10^3/uL L 10^3/uL (1.00-3.00) Absolute Monos (auto) 0.44 10^3/uL 10^3/uL (0.30-0.80) Absolute Eos (auto) 0.03 10^3/uL 10^3/uL (0.03-0.40) Absolute Basos (auto) 0.04 10^3/uL 10^3/uL (0.02-0.10) Absolute Nucleated RBC 0.00 10^3/uL 10^3/uL (0-0.01) Immature Gran % 0.4 % % (0.0-1.1) Immature Gran # 0.03 10^3/uL 10^3/uL (0.00-0.10) RBC/WBC/PLT Morphology TNP Platelet Estimate TNP POC Sodium Sodium POC Potassium Potassium POC Chloride Chloride Carbon Dioxide POC Total CO2 Anion Gap POC BUN BUN Creatinine POC Creatinine Estimated GFR Glucose POC Glucose Calcium Total Bilirubin Conjugated Bilirubin Unconjugated Bilirubin AST ALT Alkaline Phosphatase Total Protein Albumin Lipase Beta HCG, Qual Medications Given: Discontinued Medications Sodium Chloride (Ns) 1,000 mls @ 0 mls/hr IV EDNOW ONE; Wide Open PRN Reason: Protocol Stop: 12/16/18 19:21 Last Admin: 12/16/18 19:30 Dose: 1,000 mls Promethazine HCl (Phenergan) 12.5 mg IVP EDNOW ONE Stop: 12/16/18 19:21 Last Admin: 12/16/18 20:58 Dose: 12.5 mg Point of Care Test Results: Chemistry 12/16/18 19:37 POC Sodium 134 mEq/L L mEq/L (135-145) POC Potassium 3.9 mEq/L mEq/L (3.3-5.0) POC Chloride 98 mEq/L mEq/L (97-110) POC Total CO2 21 mEq/L L mEq/L (22-31) POC BUN 23 mg/dL mg/dL (7-23) POC Creatinine 1.2 mg/dL H mg/dL (0.6-1.0) POC Glucose 118 mg/dL H mg/dL (70-100) ISTAT H&H 12/16/18 19:37 POC Hgb 13.6 gm/dL gm/dL (12.6-16.3) POC Hct 40 % % (38-47) Departure - Departure Disposition: [facility] Inpatient Acute Clinical Impression: Dehydration Nausea & vomiting Qualifiers: Vomiting type: unspecified Vomiting Intractability: non-intractable Qualified Code(s): R11.2 - Nausea with vomiting, unspecified Condition: Good
[2018-12-16] MEDS ORDERED: PROMETHAZINE HCL 25 MG/ML INJ IVP ONE (19:20)
[2018-12-16] MEDS ORDERED: NS 1,000 ML IV ONE (19:20)
[2018-12-16 19:41] LABS: PLATELET COUNT 239 10^3/uL (150-400)
[2018-12-16] MEDS ORDERED: ONDANSETRON DISINTEGRATING 4 MG TAB PO PRN (22:46)
[2018-12-16] MEDS ORDERED: PROMETHAZINE HCL 25 MG/ML INJ IVP PRN (22:46)
[2018-12-16] MEDS ORDERED: HYDROmorphONE/DILAUDID 1 MG/ML INJ IVP PRN (22:46)
[2018-12-16] MEDS ORDERED: ONDANSETRON 4 MG/2 ML VIAL IVP PRN (22:46)
[2018-12-16] MEDS ORDERED: LORazepam 2 MG/ML INJ IVP PRN (22:46)
[2018-12-16] MEDS ORDERED: ACETAMINOPHEN 325 MG TAB PO PRN (22:46)
[2018-12-16] MEDS ORDERED: ACETAMINOPHEN 650 MG SUPP PR PRN (22:46)
--- NOTE | 2018-12-16 23:18 | PDGENHP ---
History and Physical - Chief Complaint abdominal pain, nausea/vomiting - History of Present Illness Source - Patient provides history and appears reliable. EMR was reviewed and case discussed with ED provider. 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 Patient reports that she has had variable diarrhea and constipation thought secondary to IBS for the past 2 weeks. Patient also notes declining appetite, and weight loss. Patient denies any hematemesis. She has not had any fevers or chills or shortness of breath. Patient last week it in his 8 MiraLax and had several bowel movements. Today she took milk of magnesia dose and had no relief in her symptoms. Over the course of the weekend patient's gas pain and abdominal pain increased. She subsequently stopped having any flatus or BM since then. She has had nausea vomiting x5 episodes. She denies any hematemesis, melena or hematochezia. History Information - Allergies/Home Medication List Allergies/Adverse Reactions: gatifloxacin [From Tequin] Allergy (Verified 12/16/18 18:41) hallucinations gluten Allergy (Verified 12/16/18 18:41) guaifenesin Allergy (Verified 12/16/18 18:41) rash/headache hydrocodone Allergy (Verified 12/16/18 18:41) Vomiting mannitol Allergy (Verified 12/16/18 18:42) nitrofurantoin Allergy (Verified 12/16/18 18:41) chills/fever oxycodone Allergy (Verified 12/16/18 18:41) Vomiting quinidine [From Quinidex Extentabs] Allergy (Verified 12/16/18 18:41) drug induced hepatitis sorbitol Allergy (Verified 12/16/18 18:42) Home Medications: Butenafine HCl 1 bernie TP BID PRN 02/28/18 [Last Taken 09/03/18 08:00] Carboxymethylcellulose 1% [Refresh Celluvisc (*)] 1 drop EACHEYE BID PRN [Last Taken 08/25/18] Gabapentin [Neurontin 100 MG (*)] 200 mg PO HS 02/28/18 [Last Taken 11/15/18] Liothyronine Sodium [Cytomel 5 mcg (*)] 5 mcg PO DAILY06 02/28/18 [Last Taken 06:00] Cholecalciferol Vit D3 [Vitamin D3 (*)] 1,000 units PO DAILY@1200 09/03/18 [ Last Taken 11/15/18] Herbals/Supplements -Info Only 1 ea PO DAILY 09/03/18 [Last Taken Unknown] Apixaban [Eliquis] 5 mg PO BID 11/16/18 [Last Taken 10/30/18] Docusate Sodium [Colace] 100 mg PO PRN PRN 11/16/18 [Last Taken Unknown] Levothyroxine [Synthroid 75 mcg (*)] 75 mcg PO DAILY06 11/16/18 [Last Taken ] Metoprolol Tartrate [Lopressor 25 mg (*)] 12.5 mg PO DAILY PRN 11/16/18 [Last Taken 11/15/18] Estradiol 12/16/18 [Last Taken Unknown] I have personally reviewed and updated: family history, medical history, social history, surgical history - Past Medical History atrial fibrillation (hypothyroid), cancer (high grade urethelial cancer, s/p DDMVAC x 4 cycles (last dose 09/2018)) Additional medical history: hypothyroid, anemia, central sleep apnea on CPAP, celiac disease, HTN, tinnitus, hearing deficits, scoliosis, osteoarthritis, esophageal stenosis, IBS, lymphocytic colitis, - Surgical History Reports: appendectomy, cancer surgery, hysterectomy Additional surgical history: cystectomy, ileal conduit, left nephrectomy and ureterectomy, right hip replacement, L nephrectomy with total ureterectomy, cataract extraction with lens placement bilaterally. Tonsillectomy and adenoidectomy. - Family History Additional family history: Mother-murmur and Crohn's. Father-HTN. No colorectal or GI medical issues. - Social History Smoking Status: Former smoker (Quit 1974) Alcohol Use: None Drug Use: None Additional social history: lives alone in apt, daughter lives nearby Review of Systems Review of Systems: ROS: 10pt was reviewed & negative except for what was stated in HPI & below Constitutional: Reports: chills. Denies: fever Cardiac: Reports: no symptoms Respiratory: Reports: no symptoms Gastrointestinal: Reports: vomitting, abdominal pain, diarrhea, nausea. Denies : black stools, rectal bleeding Genitourinary: Reports: no symptoms Muscolosketal: Reports: no symptoms Skin: Reports: no symptoms Neurological: Reports: no symptoms Hematologic/Lymphatic: Reports: no symptoms Physical Exam Physical Exam: Selected Entries 12/16/18 18:44 Blood Pressure Automatic Method Heart Rate 63 Respiratory 18 Rate O2 Sat (%) 100 Temperature (C) 36.6 C Blood Pressure 154/70 H Mean Arterial 98 Pressure (MAP) O2 Delivery Room Air Mode Temperature Oral Source Temp Pulse Resp BP Pulse Ox 36.6 C 62 18 135/63 H 96 12/16/18 18:44 12/16/18 22:00 12/16/18 22:00 12/16/18 22:00 12/16/18 22:00 Constitutional: no apparent distress, chronically ill appearing, cachectic, other (NAD. Pleasant thin adult female is lying quietly in bed. Appears chronically ill fatigued.) Eyes: PERRL (Slightly decreased reactivity light bilaterally and symmetric. Lens reflex appreciated bilaterally.), anicteric sclera, EOMI, No scleral injection Ears, Nose, Mouth, Throat: dry mucous membranes, other (No nasal discharge.), No poor dentition Cardiovascular: regular rate and rhythym, no murmur, rub, or gallop, pulses symmetric bilaterally, No edema Peripheral Pulses: 1+: dorsalis-pedis (R), dorsalis-pedis (L) Respiratory: no respiratory distress, clear to auscultation, reduced air movement, No inspiratory crackles Gastrointestinal: normoactive bowel sounds, no palpable masses, distension (No significant distension), other (Urostomy bag in place. ), No neely's sign, No guarding Genitourinary: no bladder tenderness (Urostomy bag in place.), No nowak in urethra Skin: warm, no rashes or abrasions, other ([place]) Musculoskeletal: generalized weakness, No pain with ROM Neurologic: AAOx3, sensation intact bilaterally, other (Grossly nonfocal.), No facial droop Psychiatric: interacting appropriately, anxious Lab Data & Imaging Review 12/17/18 05:00 12/16/18 19:32 WBC 8.57 10^3/uL (3.80-9.50) 12/16/18 19:32 RBC 4.00 10^6/uL (4.18-5.33) L 12/16/18 19:32 Hgb 12.5 g/dL (12.6-16.3) L 12/16/18 19:32 POC Hgb 13.6 gm/dL (12.6-16.3) 12/16/18 19:37 Hct 36.7 % (38.0-47.0) L 12/16/18 19:32 POC Hct 40 % (38-47) 12/16/18 19:37 MCV 91.8 fL (81.5-99.8) 12/16/18 19:32 MCH 31.3 pg (27.9-34.1) 12/16/18 19:32 MCHC 34.1 g/dL (32.4-36.7) 12/16/18 19:32 RDW 12.3 % (11.5-15.2) 12/16/18 19:32 Plt Count 239 10^3/uL (150-400) 12/16/18 19:32 MPV 10.1 fL (8.7-11.7) 12/16/18 19:32 Neut % (Auto) 86.9 % (39.3-74.2) H 12/16/18 19:32 Lymph % (Auto) 6.7 % (15.0-45.0) L 12/16/18 19:32 [place] % (Auto) 5.1 % (4.5-13.0) 12/16/18 19:32 Eos % (Auto) 0.4 % (0.6-7.6) L 12/16/18 19:32 Baso % (Auto) 0.5 % (0.3-1.7) 12/16/18 19:32 Nucleat RBC Rel Count 0.0 % (0.0-0.2) 12/16/18 19:32 Absolute Neuts (auto) 7.45 10^3/uL (1.70-6.50) H 12/16/18 19:32 Absolute Lymphs (auto) 0.57 10^3/uL (1.00-3.00) L 12/16/18 19:32 Absolute Monos (auto) 0.44 10^3/uL (0.30-0.80) 12/16/18 19:32 Absolute Eos (auto) 0.03 10^3/uL (0.03-0.40) 12/16/18 19:32 Absolute Basos (auto) 0.04 10^3/uL (0.02-0.10) 12/16/18 19:32 Absolute Nucleated RBC 0.00 10^3/uL (0-0.01) 12/16/18 19:32 Immature Gran % 0.4 % (0.0-1.1) 12/16/18 19:32 Immature Gran # 0.03 10^3/uL (0.00-0.10) 12/16/18 19:32 RBC/WBC/PLT Morphology TNP 12/16/18 19:32 Platelet Estimate TNP 12/16/18 19:32 POC Sodium 134 mEq/L (135-145) L 12/16/18 19:37 Sodium 130 mEq/L (135-145) L 12/16/18 19:32 POC Potassium 3.9 mEq/L (3.3-5.0) 12/16/18 19:37 Potassium 4.2 mEq/L (3.5-5.2) 12/16/18 19:32 POC Chloride 98 mEq/L (97-110) 12/16/18 19:37 Chloride 97 mEq/L (97-110) 12/16/18 19:32 Carbon Dioxide 20 mEq/l (22-31) L 12/16/18 19:32 POC Total CO2 21 mEq/L (22-31) L 12/16/18 19:37 Anion Gap 13 mEq/L (6-14) 12/16/18 19:32 POC BUN 23 mg/dL (7-23) 12/16/18 19:37 BUN 23 mg/dL (7-23) 12/16/18 19:32 Creatinine 1.2 mg/dL (0.6-1.0) H 12/16/18 19:32 POC Creatinine 1.2 mg/dL (0.6-1.0) H 12/16/18 19:37 Estimated GFR 44 12/16/18 19:32 Glucose 115 mg/dL (70-100) H 12/16/18 19:32 POC Glucose 118 mg/dL (70-100) H 12/16/18 19:37 Calcium 10.0 mg/dL (8.5-10.4) 12/16/18 19:32 Total Bilirubin 0.6 mg/dL (0.1-1.4) 12/16/18 19:32 Conjugated Bilirubin 0.3 mg/dL (0.0-0.5) 12/16/18 19:32 Unconjugated Bilirubin 0.3 mg/dL (0.0-1.1) 12/16/18 19:32 AST 31 IU/L (14-46) 12/16/18 19:32 ALT 42 IU/L (9-52) 12/16/18 19:32 Alkaline Phosphatase 81 IU/L (38-126) 12/16/18 19:32 Total Protein 6.8 g/dL (6.3-8.2) 12/16/18 19:32 Albumin 4.4 g/dL (3.5-5.0) 12/16/18 19:32 Lipase 81 IU/L (23-300) 12/16/18 19:32 Beta HCG, Qual NEGATIVE 12/16/18 19:32 Imaging Review: CT Scan of the Abdomen and Pelvis (Without IV Contrast) Clinical Indications: Abdominal pain. Technique: No intravenous contrast was given. Multidetector helical CT imaging is performed from the diaphragm to the symphysis pubis. Dose reduction techniques were utilized. Comparison: June 04, 2018. Findings: The small bowel loops are moderately fluid filled in the left upper quadrant and in the mid pelvis. This is new compared to the prior study. The right lower quadrant ostomy is unchanged. The large bowel is unchanged. There is stool at the sigmoid colon and the rectosigmoid vault. There is stool throughout the colon. No wall thickening. The stomach is not distended on this scan. There is a sliver of free fluid around the liver and in the pelvis. All of these findings indirectly suggest the possibility of early developing ileus versus obstruction. Noncontrast evaluation of the solid organs, including the unilateral right kidney, the spleen, gallbladder, and liver are within normal limits, without obvious abnormalities. The lung bases are clear. The bones and soft tissues are stable for this patient, with significant scoliosis and degenerative arthritis of the thoracolumbar spine. Impression: Please see details above. Findings suggest the possibility of early ileus versus small bowel obstruction. Findings and recommendations discussed with Ky S. Otero, M.D., at 9:30 p.m. on December 16, 2018. Final report concurs with initial preliminary interpretation. Attention: This examination does not use radiographic contrast, and as such, provides only a limited evaluation of the abdomen, pelvis, and retroperitoneum. If there is further clinical suspicion for pathological conditions, a complete CT evaluation of the abdomen and pelvis utilizing intravenous, oral, and rectal contrast should be considered. 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 #Abdominal pain SBO vs ileus - currently patient is comfortable and has not had further episodes of emesis. discussed with patient if symptoms worsen overnight may need to consider an NGT but she notes she would prefer not to have one as she has had one previously. at this time Patient resting comfortably. NPO. await for return of bowel function. Discussed with surgery in the morning as patient currently resting comfortably. #Dehydration (Acute) - continue IVF overnight. 1 liter ordered continued IVF as per day team. #Nausea & vomiting (Acute) - s/p phenergan in ED with control of vomiting. Addition of protonix. # hyponatremia - likely component of nausea vomiting and dehydration. IV fluids as noted above. Antiemetics p.r.n.. #AK I - likely pre renal in setting of dehydration nausea vomiting. Patient's creatinine appears to be 0.6 to 0.8. IV fluids for gentle hydration overnight monitor a.m. BMP. Chronic medical issues #Atrial fibrillation on Eliquis - rate currently controlled. Continue patient' s sotalol when diet advanced and resume Eliquis when there is signs of improvement in her obstruction. #Benign essential HTN - patient Maeve with some elevated blood pressures however the symptoms did improve with pain control. Resume patient's BP medications when she is tolerating diet and med rec available. # ROLANDA - normally on CPAP. Oxygen p.r.n.. # anemia likely of chronic disease no evidence of active bleeding at this time continue monitor. # hyponatremia - reorder patient's home thyroid replacement. # celiac disease # history of bladder cancer s/p cystectomy with ileal conduit and left nephrectomy and ureterectomy. Patient reports she is currently in remission. FEN - IVF overnight for supplementation. Patient will be NPO. Electrolyte monitoring replacement p.r.n.. PPX- SCDs. Resume at patient's Eliquis after evaluation by General surgery in the morning. Cor status-full Disposition-patient admitted to the up inpatient status on med surge floor given the severity of her symptoms and imaging findings will monitor closely while on bowel rest resolution of her obstruction.
[2018-12-16] MEDS ORDERED: PANTOPRAZOLE SODIUM 40 MG VIAL IVP ONE (23:19)
[2018-12-17] MEDS: NS 1,000 ML IV SCH ×2 (00:06→13:22)
[2018-12-17 05:33] LABS: PLATELET COUNT 196 10^3/uL (150-400)
[2018-12-17] MEDS: PANTOPRAZOLE SODIUM 40 MG VIAL IVP SCH (09:33)
--- NOTE | 2018-12-17 10:24 | GCON ---
[f rep st] CONSULTATION CHIEF COMPLAINT: Abdominal pain. HISTORY OF PRESENT ILLNESS: This is a 78-year-old female with a history of bladder cancer with metastasis to the kidney, who is status post cystectomy with ileal conduit and left nephrectomy and ureterectomy, who presented to the emergency department last night complaining of increasingly worsening upper abdominal pain and distention. She reports that she has had diarrhea and constipation for the last 2 weeks. She has taken MiraLAX in the past with successful relief from constipation. Yesterday, she took milk of magnesia. That failed to relieve her symptoms. She reports that over the course of the weekend, she experienced increased nausea and vomiting. She had 5 episodes of vomiting and has not had any bowel movement. We were asked to see this patient for a small bowel obstruction. A CT scan revealed small bowel loops that are moderately fluid filled in the left upper quadrant and in the mid pelvis. These findings suggest the possibility of early developing ileus versus small bowel obstruction. The patient is currently admitted for observation. At this time, she is resting comfortably in her hospital bed and denies abdominal pain, nausea, and vomiting. She does report that she passed a small amount of flatus early this morning. PAST MEDICAL HISTORY: Atrial fibrillation, hypothyroid, bladder cancer, central sleep apnea on CPAP, celiac disease, hypertension, hearing deficits, scoliosis, osteoarthritis, esophageal stenosis, IBS, lymphocytic colitis. PAST SURGICAL HISTORY: Cystectomy with ileal conduit and left nephrectomy and ureterectomy, right hip replacement, appendectomy, hysterectomy, tonsillectomy, and adenoidectomy. FAMILY HISTORY: Noncontributory. SOCIAL HISTORY: The patient is a former smoker and does not use alcohol. MEDICATIONS: Gabapentin, Cytomel, vitamin D3, herbal supplements, Eliquis, Colace, levothyroxine, metoprolol tartrate, estradiol. REVIEW OF SYSTEMS: Ten-point review of systems was performed and is negative, aside from what is in the HPI. PHYSICAL EXAM: GENERAL: Well-appearing 78-year-old female, resting comfortably in a hospital bed. HEENT: Normocephalic, atraumatic. No gross hearing deficits. Mucous membranes moist. PERRLA. NECK: Trachea is midline. CARDIOVASCULAR: Regular rate and rhythm. No clicks, murmurs, or rubs. No peripheral edema. RESPIRATORY: Clear to auscultation bilaterally. No increased work of breathing. ABDOMEN: Soft, nontender, nondistended, hypoactive bowel sounds. Urostomy in place in the right lower quadrant. Ostomy is pink with adequate profile and clear urine in appliance. INTEGUMENTARY: Warm and dry. No rashes or jaundice. MUSCULOSKELETAL: Moves all extremities equally. NEUROLOGIC: Alert and oriented x3. PSYCHIATRIC: Appropriate mood and affect. IMPRESSION AND PLAN: This is a pleasant 78-year-old female with an extensive past surgical history including cystectomy, left nephrectomy, and ureterectomy for bladder cancer, who presented with increased abdominal pain. CT scan revealed ileus versus obstruction. At the time of our visit, the patient's symptoms have improved. We will continue to keep her inpatient status for observation, intravenous fluids, bowel rest, and intravenous pain and nausea medications. Encourage ambulation. We have ordered an abdominal x-ray for today. She will likely need a small bowel follow-through as well. Discussed possibility of surgery for further exploration should her symptoms not resolve. The patient was seen by Dr. Gunn as well. /[id number]/MODL MTDD
[2018-12-17] MEDS ORDERED: BUTENAFINE HCL TP PRN (11:22)
--- NOTE | 2018-12-17 12:07 | PDMN ---
Medical Necessity Medical necessity: Pt meets IP criteria per & THOMAS M-05; est los >2 mn for eval/tx of worsening abdominal pain, WALTER & N/V r/t ileus vs SBO; requiring further workup/monitoring, bowel rest, IVFs, IV pain meds/antiemetics; hx AFIB on AC, bladder cancer; per H&P & order 12/16/18
--- NOTE | 2018-12-17 15:45 | HOSPPROG ---
Hospitalist Progress Note Assessment/Plan: 78 year old female with pmh of bladder/renal cancer status post nephrectomy and ileal conduit here with SBO vs Ileus SBO vs ileus -I reviewed the CT and repeat plain film today. Plain film today with no gaseous distention and normal bowel gas pattern. I discussed the case with general surgery and we all concur that medical management for now seems appropriate. Patient had a large Bm this afternoon and is feeling hungry. -trial of clears. -if tolerated will adat tomorrow and dc fluids -minimize pain meds -surgery following, may need SBFT Nausea & vomiting (Acute) -Use phenergan in setting of sotalol use to avoid prolonging Qt with zofran. Not currently having any further NV. hyponatremia -hypovolemic hyponatremia. responded to IV saline. cont and monitor. WALTER - Suspect pre renal azotemia from poor oral intake. Remains mildly elevated after fluids. Will continue intravenous saline and repeat in am. may be some underlying CKD. Atrial fibrillation on Eliquis, sotalol and PRN lopressor. She has had a large BM, plain film appears normal, will continue eliquis and sotalol as I do not think she will require surgical intervention. Benign essential HTN - patient Maeve with some elevated blood pressures however the symptoms did improve with pain control. Resume patient's BP medications when she is tolerating diet and med rec available. ROLANDA - normally on CPAP. Oxygen p.r.n.. anemia likely of chronic disease no evidence of active bleeding at this time continue monitor. Hypothyroid- resume cytomel and synthroid history of bladder cancer s/p cystectomy with ileal conduit and left nephrectomy and ureterectomy. Patient reports she is currently in remission. Proph- eliquis Fluids- saline Lytes- WNL Nutrition- clears Cor- Full Dispo- inpatient for SBO, NV Subjective: feeling better. Had a large substantial BM, food smells good. Objective: Vital Signs Temp Pulse Resp BP Pulse Ox 36.7 C 56 L 16 119/90 H 98 12/17/18 15:09 12/17/18 15:09 12/17/18 15:09 12/17/18 15:09 12/17/18 15:09 Laboratory Results 12/17/18 05:00 12/17/18 05:00 12/16/18 12/17/18 12/18/18 05:59 05:59 05:59 Intake Total 1375 Output Total 500 Balance 875 - Physical Exam Constitutional: no apparent distress, appears nourished, not in pain Eyes: PERRL, anicteric sclera, EOMI Ears, Nose, Mouth, Throat: moist mucous membranes, hearing normal, ears appear normal, no oral mucosal ulcers Cardiovascular: regular rate and rhythym, no murmur, rub, or gallop Respiratory: no respiratory distress, no rales or rhonchi, clear to auscultation Gastrointestinal: normoactive bowel sounds, soft, non-tender abdomen, no palpable masses Genitourinary: no bladder fullness, no bladder tenderness, no renal bruits Skin: no rashes or abrasions, no fluctuance, no induration Musculoskeletal: full muscle strength, no muscle tenderness, normal joint ROM Neurologic: AAOx3, sensation intact bilaterally Psychiatric: interacting appropriately, not anxious, not encephalopathic, thought process linear Lymph, Heme, Immunologic: no cervical LAD, no supraclavicular LAD ICD10 Worksheet Patient Problems: Problems Problem Status Onset Dehydration Acute Nausea & vomiting Acute Afib Acute 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
--- NOTE | 2018-12-17 16:27 | ASMTCASEMG ---
Living Arrangements What is your living Answers: Alone arrangement? Who do you live with? Type Of Residence What kind of residence do Answers: Apartment you live in? Type of Residence Facility Name Notes: [facility] Discharge Plan Comments Coordination Status Comments Notes: Patient is a 78yo female who lives at [facility] with a past hx of AFIB, HTN, hearing deficit who has been admitted for abdominal pain, dehydration, nausea and vomiting, hyponatremia. No therapies ordered at this time. D/C plan TBD. CM will follow Date Signed: 12/17/2018 04:27 PM Electronically Signed By:Barbara Sanchez LCSW
--- NOTE | 2018-12-17 18:07 | SOAPPROG ---
SOAP Progress Note Assessment/Plan: Assessment: 78-YEAR-OLD FEMALE WITH INITIAL PRESENTATION OF SMALL-BOWEL OBSTRUCTION APPEARS TO BE IMPROVING 2 WAY ABDOMEN SHOWS MOSTLY CONSTIPATION DESPITE CT EVIDENCE OF SBO LAST NIGHT SHE DID HAVE A SMALL BOWEL MOVEMENT TODAY SHE IS HAVING NO SIGNIFICANT PAIN NAUSEA VOMITING AND REMAINS AFEBRILE ABDOMEN SOFT NONTENDER WITH MINIMAL DISTENTION HEENT NONICTERIC CHEST CLEAR IMPRESSION RESOLVING SMALL-BOWEL OBSTRUCTION/C CONSULT BY MY NURSE PRACTITIONER Plan: SMALL-BOWEL FOLLOW-THROUGH AND CLEAR LIQUIDS 12/17/18 18:06 Objective: Vital Signs Temp Pulse Resp BP Pulse Ox 36.7 C 56 L 16 119/90 H 98 12/17/18 15:09 12/17/18 15:09 12/17/18 15:09 12/17/18 15:09 12/17/18 15:09 Laboratory Results 12/17/18 05:00 12/17/18 05:00 12/16/18 12/17/18 12/18/18 05:59 05:59 05:59 Intake Total 1375 140 Output Total 500 200 Balance 875 -60 ICD10 Worksheet Patient Problems: Problems Problem Status Onset Dehydration Acute Nausea & vomiting Acute Afib Acute 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
[2018-12-17] MEDS ORDERED: GABAPENTIN 100 MG CAP PO SCH (21:00)
[2018-12-17] MEDS ORDERED: APIXABAN 5 MG TAB PO SCH (21:00)
[2018-12-17] MEDS: SOTALOL HCL 80 MG TAB PO SCH (21:54)
[2018-12-17] MEDS: CARBOXYMETHYLCELLULOSE 1% 0.4 ML DROPERETTE EACHEYE SCH (22:01)
[2018-12-18] MEDS: SOTALOL HCL 80 MG TAB PO SCH ×2 (04:06→06:32)
[2018-12-18] MEDS ORDERED: METOPROLOL TARTRATE 5 MG/5 ML INJ IVP ONE (04:13)
[2018-12-18] MEDS ORDERED: LEVOTHYROXINE 75 MCG TAB PO SCH (06:00)
[2018-12-18] MEDS ORDERED: LIOTHYRONINE SODIUM 5 MCG TAB PO SCH (06:00)
[2018-12-18] MEDS: CARBOXYMETHYLCELLULOSE 1% 0.4 ML DROPERETTE EACHEYE SCH (09:17)
[2018-12-18] MEDS: PANTOPRAZOLE SODIUM 40 MG VIAL IVP SCH (09:18)
--- NOTE | 2018-12-18 11:15 | SOAPPROG ---
SOAP Progress Note Assessment/Plan: Assessment/plan: 78 y/o F admitted for SBO. Abdominal xray and SBFT yesterday both normal. Pt had several loose BMs last night. Abdomen is soft and nondistended. Tachycardia last night. Stat EKG pending. Appreciate hospitalist input. Pt asymptomatic. Dispo: pending. Ok to go from surgery standpoint once stable. S: Didn't sleep well last night due to continual loose BMs. Waiting for EKG. Denies chest pain. 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
[2018-12-18 12:26] VITALS: BP 126/63
--- NOTE | 2018-12-18 13:26 | CPEKG ---
Test Reason : OPEN Blood Pressure : / mmHG Vent. Rate : 059 BPM Atrial Rate : 058 BPM P-R Int : 173 ms QRS Dur : 088 ms QT Int : 471 ms P-R-T Axes : 076 042 057 degrees QTc Int : 467 ms Sinus rhythm RSR' or QR pattern in V1 suggests right ventricular conduction delay Probable left atrial enlargement Confirmed by Lesvia Plunkett ([id number]) on 12/18/2018 1:26:15 PM Referred By: Janay Gonzalez Confirmed By:Lesvia Plunkett
--- NOTE | 2018-12-18 18:05 | PDDCSUM ---
Discharge Summary Discharge Summary: Discharge diagnosis Small-bowel obstruction versus ileus Abdominal pain Atrial fibrillation I BS History of bladder cancer with mets to the kidney Hyponatremia CKD Patient was admitted for abdominal pain. CT was obtained that showed ileus versus small-bowel obstruction. Patient was managed medically with NPO IV fluids and bowel rest. General surgery was consulted and a small-bowel follow- through was obtained which was essentially normal. The patient's abdominal pain resolved without any intervention, and NG tube was never needed to be placed. Her diet was able to be advanced to regular diet without any issue. She was able to have multiple bowel movements under repeat plain film showed normal bowel gas pattern. On admission her sotalol was held and she did have 1 episode of AFib with rates to the 130s that resolved once she was restarted on her home medications. She was cleared by surgery for discharge from their standpoint and so she was discharged home to follow up with her primary care physician. Of note she did have an appointment to follow up with Cardiology for further and mat management and evaluation of her atrial fibrillation in the following week Disposition Home independent
== END 2018-12-18 13:53 | disposition home or self-care (01) | DRG 389 ==
LOC: OBSVTOIN 22:53 → F1N 23:28
PROVIDERS: ADMIT Family Medicine; ATTEND Family Medicine
DX: K56.609 Unspecified intestinal obstruction, unspecified as to partial versus complete obstruction (principal); K56.7 Ileus, unspecified; E87.1 Hypo-osmolality and hyponatremia; E86.0 Dehydration; K90.0 Celiac disease; K58.9 Irritable bowel syndrome, unspecified; I48.91 Unspecified atrial fibrillation; I12.9 Hypertensive chronic kidney disease with stage 1 through stage 4 chronic kidney disease, or unspecified chronic kidney disease; N18.9 Chronic kidney disease, unspecified; E03.9 Hypothyroidism, unspecified; G47.33 Obstructive sleep apnea (adult) (pediatric); D63.8 Anemia in other chronic diseases classified elsewhere; Z79.01 Long term (current) use of anticoagulants; Z85.51 Personal history of malignant neoplasm of bladder; Z85.528 Personal history of other malignant neoplasm of kidney; Z87.891 Personal history of nicotine dependence
CPT/HCPCS: 82435-PO; 82565-PO; 82947-PO; 84132-PO; 84295-PO; 84520-PO; 85014-ER; 96374; J2550

== ENCOUNTER → 2019-01-02 | Outpatient (CLI) | payer OTHER | LOC: BHFA 11:30 | PROVIDERS: ATTEND Internal Medicine Cardiovascular Disease | DX: I48.91 Unspecified atrial fibrillation (principal) ==

== ENCOUNTER → 2019-02-11 | Outpatient (CLI) | payer OTHER | LOC: FIMAGING 09:15 ==